=== PATIENT | female | born 1975 | race American Indian/Alaskan Native ===

== ENCOUNTER 2019-05-07 18:17 | Emergency (ER) | payer SELFPAY ==
--- NOTE | 2019-05-07 20:14 | Event Note ---
ED Screening Note Date of service: 05/07/19 Time: 20:13 ED Screening Note: 43 y o female presents to ED cc of knee pain and neck pain s[place] This initial assessment/diagnostic orders/clinical plan/treatment(s) is/are subject to change based on patients health status, clinical progression and re- assessment by fellow clinical providers in the ED. Further treatment and workup at subsequent clinical providers discretion. Patient/guardian urged not to elope from the ED as their condition may be serious if not clinically assessed and managed. Initial orders include: xr cervical and right knee
--- NOTE | 2019-05-07 21:09 | XRay Report ---
RIGHT KNEE 3 VIEWS INDICATION / CLINICAL INFORMATION: knee pain. COMPARISON: None available. FINDINGS: Mild to moderate degenerative change. No fracture or other acute skeletal abnormality. Lateral view s hows no appreciable joint fluid. Signer Name: Prieto Freeman MD Signed: 05/07/2019 9:04 PM Workstation Name: [id number]
--- NOTE | 2019-05-07 21:11 | XRay Report ---
Cervical spine 5 views INDICATION / CLINICAL INFORMATION: pain from fall. COMPARISON: None. FINDINGS: Interbody fusion with anterior stabilization at C4-C6. No fracture, subluxation or other acute abnorm ality. Signer Name: Prieto Freeman MD Signed: 05/07/2019 9:06 PM Workstation Name: [id number]
[2019-05-07 23:29] VITALS: BP 180/106
[2019-05-08] MEDS ORDERED: ACETAMINOPHEN 500 MG TAB PO ONE (00:21)
[2019-05-08] MEDS ORDERED: IBUPROFEN 600 MG TAB PO ONE (00:21)
--- NOTE | 2019-05-08 00:49 | Emergency Department Report ---
ED Fall HPI - General Chief Complaint: Fall Stated Complaint: KNEE/BACK INJURY/MIGRAINE Source: patient Mode of arrival: Ambulatory - History of Present Illness Initial Comments: Patient is a 43-year-old -[place] female with no past medical history except hypertension, [id number]-lkjaukjae diabetes, chronic osteoarthritis and lupus who presents to the ED record and the acute onset persistent neck pain and bilateral knee pain after she tripped and fell down on the concrete ground when disembarking from motor vehicle 8 hours ago. Patient says the pain is worsened in the last fall. Patient denies dizziness, loss of consciousness, head injury, syncope or chest pain, abdominal pain numbness and tingling or weakness of upper and lower extremities bilaterally, urinary or bowel incontinence and subtle paresthesia. MD Complaint: fall, other (Bilateral knee and neck pain) -: Sudden, hour(s) (8) Fall From: other (Tripped and fell down when disembarking from a car) When Fall Occurred: other (8 hours ago) Fall Witnessed: yes, by bystander Place Fall Occurred: street Loss of Consciousness: none Prolonged Down Time?: no Symptoms Prior to Fall: none Location: neck, other (Bilateral knees) Location - Extremities: Left: Knee (Bilateral knee pain), Right: Knee Severity: severe Severity scale (0 -10): 7 Quality: sharp, aching Context: tripped/slipped Associated Symptoms: denies, neck pain. denies: headache, numbness, weakness, chest paint, shortness of breath, abdominal pain, hematuria, unable to walk, lightheaded, vertigo, confusion - Related Data Previous Rx's Medication Instructions Recorded Last Taken Type Acyclovir 800 mg PO 5XD #50 tablet 04/30/18 Unknown Rx Gabapentin 100 mg PO Q8HR #30 capsule 04/30/18 Unknown Rx predniSONE [Deltasone] 20 mg PO BID #8 tab 04/30/18 Unknown Rx Amitriptyline [Elavil] 25 mg PO QHS #14 tab 10/19/18 Unknown Rx HYDROcodone/ACETAMINOPHEN [[place] 1 each PO Q6HR PRN #12 tablet 10/19/18 Unknown Rx 5-325 Tablet] Hydroxyzine HCl [hydrOXYzine] 50 mg PO Q12HR PRN #10 tablet 10/19/18 Unknown Rx Valacyclovir HCl [Valtrex] 1,000 mg PO TID 7 Days #21 tablet 10/19/18 Unknown Rx Ibuprofen [Motrin] 600 mg PO Q8H PRN #20 tablet 05/08/19 Unknown Rx tiZANidine [Zanaflex 4mg TAB] 4 mg PO Q8H PRN #15 tablet 05/08/19 Unknown Rx traMADol [Ultram] 50 mg PO Q6HR PRN #12 tablet 05/08/19 Unknown Rx Allergies Allergy/AdvReac Type Severity Reaction Status Date / Time No Known Allergies Allergy Verified 05/07/19 18:22 ED Review of Systems ROS: Stated complaint: KNEE/BACK INJURY/MIGRAINE Other details as noted in HPI Constitutional: denies: chills, fever Eyes: denies: eye pain, eye discharge, vision change ENT: denies: ear pain, throat pain Respiratory: denies: cough, shortness of breath, wheezing Cardiovascular: denies: chest pain, palpitations Endocrine: no symptoms reported Gastrointestinal: denies: abdominal pain, nausea, diarrhea Genitourinary: denies: urgency, dysuria, discharge Musculoskeletal: arthralgia (Bilateral knees and neck pain). denies: back pain, joint swelling Skin: denies: rash, lesions Neurological: denies: headache, weakness, paresthesias Psychiatric: denies: anxiety, depression Hematological/Lymphatic: denies: easy bleeding, easy bruising ED Past Medical Hx - Past Medical History Previous Medical History?: Yes Hx Diabetes: Yes Hx Arthritis: Yes Additional medical history: Lupus, shingles - Surgical History Past Surgical History?: Yes Additional Surgical History: hysterectomy,spinal fusion,hand - Social History Smoking Status: Never Smoker Substance Use Type: None, Other - Medications Home Medications: Home Medications Medication Instructions Recorded Confirmed Last Taken Type Acyclovir 800 mg PO 5XD #50 tablet 04/30/18 Unknown Rx Gabapentin 100 mg PO Q8HR #30 capsule 04/30/18 Unknown Rx predniSONE [Deltasone] 20 mg PO BID #8 tab 04/30/18 Unknown Rx Amitriptyline [Elavil] 25 mg PO QHS #14 tab 10/19/18 Unknown Rx HYDROcodone/ACETAMINOPHEN [[place] 1 each PO Q6HR PRN #12 tablet 10/19/18 Unknown Rx 5-325 Tablet] Hydroxyzine HCl [hydrOXYzine] 50 mg PO Q12HR PRN #10 tablet 10/19/18 Unknown Rx Valacyclovir HCl [Valtrex] 1,000 mg PO TID 7 Days #21 tablet 10/19/18 Unknown Rx Ibuprofen [Motrin] 600 mg PO Q8H PRN #20 tablet 05/08/19 Unknown Rx tiZANidine [Zanaflex 4mg TAB] 4 mg PO Q8H PRN #15 tablet 05/08/19 Unknown Rx traMADol [Ultram] 50 mg PO Q6HR PRN #12 tablet 05/08/19 Unknown Rx ED Physical Exam - General Limitations: No Limitations General appearance: alert, in no apparent distress - Head Head exam: Present: atraumatic, normocephalic, normal inspection - Eye Eye exam: Present: normal appearance, PERRL, EOMI Pupils: Present: normal accommodation - ENT ENT exam: Present: normal exam, normal orophraynx, mucous membranes moist, TM's normal bilaterally, normal external ear exam - Neck Neck exam: Present: normal inspection, tenderness (palpable cervical paraspinal musculoskeletal tenderness), full ROM. Absent: lymphadenopathy, thyromegaly - Respiratory Respiratory exam: Present: normal lung sounds bilaterally. Absent: respiratory distress, wheezes, rhonchi, stridor, chest wall tenderness, accessory muscle use, decreased breath sounds, prolonged expiratory - Cardiovascular Cardiovascular Exam: Present: regular rate, normal rhythm, normal heart sounds. Absent: systolic murmur, diastolic murmur, rubs, gallop - GI/Abdominal GI/Abdominal exam: Present: soft, normal bowel sounds. Absent: tenderness, rebound, hyperactive bowel sounds, hypoactive bowel sounds, organomegaly - Extremities Exam Extremities exam: Present: normal inspection, tenderness (Bilateral knees), normal capillary refill. Absent: pedal edema, joint swelling, calf tenderness - Back Exam Back exam: Present: normal inspection, full ROM. Absent: tenderness, CVA tenderness (R), CVA tenderness (L), muscle spasm, paraspinal tenderness, vertebral tenderness - Neurological Exam Neurological exam: Present: alert, oriented X3, CN II-XII intact, normal gait, reflexes normal - Psychiatric Psychiatric exam: Present: normal affect, normal mood, anxious - Skin Skin exam: Present: warm, dry, intact, normal color. Absent: rash ED Course Vital Signs 05/07/19 05/07/19 20:05 23:28 Temperature 98.8 F 98.1 F Pulse Rate 75 79 Respiratory 18 18 Rate Blood Pressure 199/112 180/106 O2 Sat by Pulse 100 99 Oximetry - Reevaluation(s) Reevaluation #1: 05/08/19 00:47 This is a 43-year-old female who presented to the ED with complaint of neck pain and bilateral knee pain after she tripped and fell down landing on her knees on a concrete ground when disembarking from a car 8 hours ago. In the ED, patient is alert and oriented 3 and is in no acute distress but very anxious. Patient was treated for pain and right knee x-ray shows no acute fractures or subluxations. C-spine x-ray shows no acute fractures or subluxations, or loosening of previous surgical interventions. Patient was discharged home on pain medications and advised to follow-up with her primary care physician in 7- 10 days for reevaluation. Patient was advised to return to the ED immediately if symptoms get worse. ED Medical Decision Making - Radiology Data Radiology results: report reviewed, image reviewed Findings [address] [address] XRay Report Signed Patient: ULISES PONCE MR# : [id number] : 1975 Acct:[id number] Age/Sex: 43 / F ADM Date: 05/07/19 Loc: ED Attending Dr: Ordering Physician: MASON MARROQUIN Date of Service: 05/07/19 Procedure(s): XR spine cervical 2-3V Accession Number(s): [id number] cc: MASON MARROQUIN Fluoro Time In Minutes: Cervical spine 5 views INDICATION / CLINICAL INFORMATION: pain from fall. COMPARISON: None. FINDINGS: Interbody fusion with anterior stabilization at C4-C6. No fracture, subluxation or other acute abnormality. Signer Name: Prieto Freeman MD Signed: 05/07/2019 9:06 PM Workstation Name: [id number] Transcribed By: TM Dictated By: Prieto Freeman MD Electronically Authenticated By: Prieto Freeman MD Signed Date/Time: 05/07/192105 DD/ 04 TD/TT: Findings [facility] [address] [place] [address] XRay Report Signed Patient: ULISES OPNCE MR# : [id number] : 1975 Acct:[id number] Age/Sex: 43 / F ADM Date: 05/07/19 Loc: ED Attending Dr: Ordering Physician: MASON MARROQUIN Date of Service: 05/07/19 Procedure(s): XR knee 3V RT Accession Number(s): [id number] cc: MASON MARROQUIN Fluoro Time In Minutes: RIGHT KNEE 3 VIEWS INDICATION / CLINICAL INFORMATION: knee pain. COMPARISON: None available. FINDINGS: Mild to moderate degenerative change. No fracture or other acute skeletal abnormality. Lateral view shows no appreciable joint fluid. Signer Name: Prieto Freeman MD Signed: 05/07/2019 9:04 PM Workstation Name: [id number] Transcribed By: TM Dictated By: Prieto Freeman MD Electronically Authenticated By: Prieto Freeman MD Signed Date/Time: 05/07/192103 - Medical Decision Making This is a 43-year-old female who presented to the ED with complaint of neck pain and bilateral knee pain after she tripped and fell down landing on her knees on a concrete ground when disembarking from a car 8 hours ago. In the ED, patient is alert and oriented 3 and is in no acute distress but very anxious. Patient was treated for pain and right knee x-ray shows no acute fractures or subluxations. C-spine x-ray shows no acute fractures or subluxations, or loosening of previous surgical interventions. Patient was discharged home on pain medications and advised to follow-up with her primary care physician in 7- 10 days for reevaluation. Patient was advised to return to the ED immediately if symptoms get worse. - Differential Diagnosis Knee fracture; cervical fracture; cervical sprain, muscle strain Critical care attestation.: If time is entered above; I have spent that time in minutes in the direct care of this critically ill patient, excluding procedure time. ED Disposition Clinical Impression: Cervical paraspinal muscle spasm, Sprain of both knees Disposition: TO HOME OR SELFCARE Is pt being admited?: No Does the pt Need Aspirin: No Condition: Stable Instructions: Knee Sprain (ED), Muscle Strain (ED), Cervical Sprain (ED) Additional Instructions: Take medications, drink plenty of fluids and follow-up with your primary care physician in 7-10 days for reevaluation. Return to the ED immediately if symptoms get worse. Prescriptions: Ibuprofen [Motrin] 600 mg PO Q8H PRN #20 tablet PRN Reason: Pain traMADol [Ultram] 50 mg PO Q6HR PRN #12 tablet PRN Reason: Pain tiZANidine [Zanaflex 4mg TAB] 4 mg PO Q8H PRN #15 tablet PRN Reason: Muscle Spasm Referrals: PRIMARY CARE, [Primary Care Provider] - 3-5 Days Forms: Work/School Release Form(ED) Time of Disposition: 00:51 Print Language: SETSWANA
== END 2019-05-08 01:07 | disposition home or self-care (01) ==
LOC: ED 18:17
DX: S83.91XA Sprain of unspecified site of right knee, initial encounter (principal); E11.9 Type 2 diabetes mellitus without complications; M19.90 Unspecified osteoarthritis, unspecified site; W01.0XXA Fall on same level from slipping, tripping and stumbling without subsequent striking against object, initial encounter; Y93.89 Activity, other specified; Y92.89 Other specified places as the place of occurrence of the external cause; Y99.8 Other external cause status
CPT/HCPCS: 72040

== ENCOUNTER 2019-07-04 12:52 | Emergency (ER) | payer SELFPAY ==
[2019-07-04 12:58] VITALS: BP 153/95
--- NOTE | 2019-07-04 14:08 | Event Note ---
ED Screening Note Date of service: 07/04/19 Time: 14:02 ED Screening Note: 43 y o female with pmh of DM and HTN uncompliant with meds cc of green/blurry vision This initial assessment/diagnostic orders/clinical plan/treatment(s) is/are subject to change based on patients health status, clinical progression and re- assessment by fellow clinical providers in the ED. Further treatment and workup at subsequent clinical providers discretion. Patient/guardian urged not to elope from the ED as their condition may be serious if not clinically assessed and managed. Initial orders include: labs, main eval
[2019-07-04 15:40] LABS: Hematocrit 39.9 % (30.3-42.9); Hemoglobin 13.7 gm/dl (10.1-14.3); Mean Corpuscular HGB Conc 34 % (30-34); Mean Corpuscular Volume 86 fl (79-97); Platelet Count 161 K/mm3 (140-440); Red Blood Count 4.63 M/mm3 (3.65-5.03); Red Cell Distribution Width 12.5 % (13.2-15.2)
[2019-07-04 16:03] LABS: Alanine Aminotransferase 16 units/L (7-56); Albumin 3.6 g/dL (3.9-5); BUN/Creatinine Ratio 20; Blood Urea Nitrogen 14 mg/dL (7-17); Hemolysis Index 87
== END 2019-07-04 17:47 | disposition left against medical advice (07) ==
LOC: ED 12:52
DX: R51 Headache (principal); Z53.21 Procedure and treatment not carried out due to patient leaving prior to being seen by health care provider
CPT/HCPCS: 36415; 80053; 82962; 85027

== ENCOUNTER 2020-04-08 09:15 | Emergency (ER) | payer SELFPAY ==
--- NOTE | 2020-04-08 10:30 | Emergency Department Report ---
ED General Adult HPI - General Chief complaint: Hyperglycemia Stated complaint: DIABETIC/HEADACHE Time Seen by Provider: 04/08/20 09:56 Source: patient Mode of arrival: Ambulatory Limitations: No Limitations - History of Present Illness Initial comments: 44-year-old -Mal[place] female patient presents with complaints of headache x last night. Patient states the headache came on gradually and denies thunderclap onset or worst headache of her life. She rates her headache as a 9/10 in severity and states it is in the frontal and posterior portion of her head. She denies any dizziness, loss of consciousness, head trauma, numbness/weakness/tingling in her limbs, difficulty with speech/ambulation, confusion, or memory loss. She reports history of hypertension and diabetes and states she is noncompliant with her medications for the past year. She also reports history of migraines in the past and states this headache feels similar. She admits to photophobia and nausea without vomiting or abdominal pain. Patient also denies any chest pain, shortness of breath, or leg pain/swelling. - Related Data Previous Rx's Medication Instructions Recorded Last Taken Type Acyclovir 800 mg PO 5XD #50 tablet 04/30/18 Unknown Rx Gabapentin 100 mg PO Q8HR #30 capsule 04/30/18 Unknown Rx predniSONE [Deltasone] 20 mg PO BID #8 tab 04/30/18 Unknown Rx Amitriptyline [Elavil] 25 mg PO QHS #14 tab 10/19/18 Unknown Rx HYDROcodone/ACETAMINOPHEN [[place] 1 each PO Q6HR PRN #12 tablet 10/19/18 Unknown Rx 5-325 Tablet] Hydroxyzine HCl [hydrOXYzine] 50 mg PO Q12HR PRN #10 tablet 10/19/18 Unknown Rx Valacyclovir HCl [Valtrex] 1,000 mg PO TID 7 Days #21 tablet 10/19/18 Unknown Rx Ibuprofen [Motrin] 600 mg PO Q8H PRN #20 tablet 05/08/19 Unknown Rx tiZANidine [Zanaflex 4mg TAB] 4 mg PO Q8H PRN #15 tablet 05/08/19 Unknown Rx traMADoL [Ultram] 50 mg PO Q6HR PRN #12 tablet 05/08/19 Unknown Rx Butalb/Acetamin/Caff 50-325-40 1 tab PO Q8HR PRN #10 tablet 04/08/20 Unknown Rx [Fioricet 50-325-40] metFORMIN [Glucophage] 500 mg PO BID 60 Days #60 tablet 04/08/20 Unknown Rx Allergies Allergy/AdvReac Type Severity Reaction Status Date / Time No Known Allergies Allergy Verified 05/07/19 18:22 ED Review of Systems ROS: Stated complaint: DIABETIC/HEADACHE Other details as noted in HPI Constitutional: denies: chills, diaphoresis, fever, malaise, weakness ENT: denies: ear pain, throat pain Respiratory: denies: cough, shortness of breath Cardiovascular: denies: chest pain Endocrine: denies: excessive sweating Gastrointestinal: nausea. denies: abdominal pain, vomiting, diarrhea Genitourinary: denies: urgency, dysuria Musculoskeletal: denies: back pain Neurological: headache. denies: numbness, paresthesias, confusion, abnormal gait Hematological/Lymphatic: denies: swollen glands ED Past Medical Hx - Past Medical History Previous Medical History?: Yes Hx Diabetes: Yes Hx Arthritis: Yes Additional medical history: Lupus, shingles - Surgical History Additional Surgical History: hysterectomy,spinal fusion,hand - Social History Smoking Status: Never Smoker Substance Use Type: None - Medications Home Medications: Home Medications Medication Instructions Recorded Confirmed Last Taken Type Acyclovir 800 mg PO 5XD #50 tablet 04/30/18 Unknown Rx Gabapentin 100 mg PO Q8HR #30 capsule 04/30/18 Unknown Rx predniSONE [Deltasone] 20 mg PO BID #8 tab 04/30/18 Unknown Rx Amitriptyline [Elavil] 25 mg PO QHS #14 tab 10/19/18 Unknown Rx HYDROcodone/ACETAMINOPHEN [[place] 1 each PO Q6HR PRN #12 tablet 10/19/18 Unknown Rx 5-325 Tablet] Hydroxyzine HCl [hydrOXYzine] 50 mg PO Q12HR PRN #10 tablet 10/19/18 Unknown Rx Valacyclovir HCl [Valtrex] 1,000 mg PO TID 7 Days #21 tablet 10/19/18 Unknown Rx Ibuprofen [Motrin] 600 mg PO Q8H PRN #20 tablet 05/08/19 Unknown Rx tiZANidine [Zanaflex 4mg TAB] 4 mg PO Q8H PRN #15 tablet 05/08/19 Unknown Rx traMADoL [Ultram] 50 mg PO Q6HR PRN #12 tablet 05/08/19 Unknown Rx Butalb/Acetamin/Caff 50-325-40 1 tab PO Q8HR PRN #10 tablet 04/08/20 Unknown Rx [Fioricet 50-325-40] metFORMIN [Glucophage] 500 mg PO BID 60 Days #60 tablet 04/08/20 Unknown Rx ED Physical Exam - General Limitations: No Limitations General appearance: alert, in no apparent distress - Head Head exam: Present: atraumatic, normocephalic - Eye Eye exam: Present: normal appearance, PERRL, EOMI. Absent: scleral icterus - ENT ENT exam: Present: mucous membranes moist - Neck Neck exam: Present: normal inspection, tenderness (Bilateral trapezius muscle t enderness to palpation noted; no vertebral tenderness noted), full ROM. Absent: meningismus - Respiratory Respiratory exam: Present: normal lung sounds bilaterally. Absent: respiratory distress - Cardiovascular Cardiovascular Exam: Present: regular rate, normal rhythm. Absent: systolic murmur, diastolic murmur, rubs, gallop - GI/Abdominal GI/Abdominal exam: Present: soft. Absent: tenderness - Extremities Exam Extremities exam: Present: normal inspection, full ROM - Back Exam Back exam: Present: normal inspection - Neurological Exam Neurological exam: Present: alert, oriented X3, CN II-XII intact, normal gait. Absent: motor sensory deficit - Expanded Neurological Exam Expanded Cerebellar function: Finger to Nose: Normal, Heel to Fortune: Normal, Romberg: Normal Sensory exam: Upper Extremity Light Touch: Normal, Lower Extremity Light Touch: Normal Motor strength exam: RUE: 5, LUE: 5, RLE: 5, LLE: 5 - Psychiatric Psychiatric exam: Present: normal affect, normal mood - Skin Skin exam: Present: warm, dry, intact, normal color. Absent: rash, cyanosis, diaphoretic, ecchymosis ED Course Vital Signs 04/08/20 04/08/20 09:21 16:52 Temperature 97.8 F Pulse Rate 65 80 Respiratory 18 16 Rate Blood Pressure 181/103 Blood Pressure 112/80 190/108 [Right] O2 Sat by Pulse 100 100 Oximetry ED Medical Decision Making - Lab Data Result diagrams: 04/08/20 11:46 04/08/20 11:46 Lab Results 10/06/20 10/06/20 10/06/20 Range/Units 09:43 11:46 11:46 WBC 6.0 (4.5-11.0) K/mm3 RBC 4.69 (3.65-5.03) M/mm3 Hgb 14.2 (10.1-14.3) gm/dl Hct 41.0 (30.3-42.9) % MCV 87 (79-97) fl MCH 30 (28-32) pg MCHC 35 H (30-34) % RDW 12.9 L (13.2-15.2) % Plt Count 134 L (140-440) K/mm3 Lymph % (Auto) 40.0 H (13.4-35.0) % [place] % (Auto) 7.1 (0.0-7.3) % Eos % (Auto) 0.4 (0.0-4.3) % Baso % (Auto) 1.8 (0.0-1.8) % Lymph # (Auto) 2.4 (1.2-5.4) K/mm3 [place] # (Auto) 0.4 (0.0-0.8) K/mm3 Eos # (Auto) 0.0 (0.0-0.4) K/mm3 Baso # (Auto) 0.1 (0.0-0.1) K/mm3 Seg Neutrophils % 50.7 (40.0-70.0) % Seg Neutrophils # 3.0 (1.8-7.7) K/mm3 Sodium 138 (137-145) mmol/L Potassium 4.2 (3.6-5.0) mmol/L Chloride 96.7 L (98-107) mmol/L Carbon Dioxide 24 (22-30) mmol/L Anion Gap 22 mmol/L BUN 10 (7-17) mg/dL Creatinine 0.7 (0.6-1.2) mg/dL Estimated GFR > 60 ml/min BUN/Creatinine Ratio 14 % Glucose 396 H (65-100) mg/dL POC Glucose 332 H (70-105) Calcium 9.0 (8.4-10.2) mg/dL Total Bilirubin 0.50 (0.1-1.2) mg/dL AST 14 (5-40) units/L ALT 14 (7-56) units/L Alkaline Phosphatase 119 (35-129) units/L Total Protein 6.9 (6.3-8.2) g/dL Albumin 4.2 (3.9-5) g/dL Albumin/Globulin Ratio 1.6 % Urine Color (Yellow) Urine Turbidity (Clear) Urine pH (5.0-7.0) Ur Specific [place] (1.003-1.030) Urine Protein (Negative) mg/dL Urine Glucose (UA) (Negative) mg/dL Urine Ketones (Negative) mg/dL Urine Blood (Negative) Urine Nitrite (Negative) Urine Bilirubin (Negative) Urine Urobilinogen (<2.0) mg/dL Ur Leukocyte Esterase (Negative) Urine WBC (Auto) (0.0-6.0) /HPF Urine RBC (Auto) (0.0-6.0) /HPF U Epithel Cells (Auto) (0-13.0) /HPF 04/08/20 Range/Units 13:39 WBC (4.5-11.0) K/mm3 RBC (3.65-5.03) M/mm3 Hgb (10.1-14.3) gm/dl Hct (30.3-42.9) % MCV (79-97) fl MCH (28-32) pg MCHC (30-34) % RDW (13.2-15.2) % Plt Count (140-440) K/mm3 Lymph % (Auto) (13.4-35.0) % [place] % (Auto) (0.0-7.3) % Eos % (Auto) (0.0-4.3) % Baso % (Auto) (0.0-1.8) % Lymph # (Auto) (1.2-5.4) K/mm3 [place] # (Auto) (0.0-0.8) K/mm3 Eos # (Auto) (0.0-0.4) K/mm3 Baso # (Auto) (0.0-0.1) K/mm3 Seg Neutrophils % (40.0-70.0) % Seg Neutrophils # (1.8-7.7) K/mm3 Sodium (137-145) mmol/L Potassium (3.6-5.0) mmol/L Chloride (98-107) mmol/L Carbon Dioxide (22-30) mmol/L Anion Gap mmol/L BUN (7-17) mg/dL Creatinine (0.6-1.2) mg/dL Estimated GFR ml/min BUN/Creatinine Ratio % Glucose (65-100) mg/dL POC Glucose (70-105) Calcium (8.4-10.2) mg/dL Total Bilirubin (0.1-1.2) mg/dL AST (5-40) units/L ALT (7-56) units/L Alkaline Phosphatase (35-129) units/L Total Protein (6.3-8.2) g/dL Albumin (3.9-5) g/dL Albumin/Globulin Ratio % Urine Color Straw (Yellow) Urine Turbidity Clear (Clear) Urine pH 6.0 (5.0-7.0) Ur Specific [place] 1.028 (1.003-1.030) Urine Protein <15 mg/dl (Negative) mg/dL Urine Glucose (UA) >=500 (Negative) mg/dL Urine Ketones Neg (Negative) mg/dL Urine Blood Neg (Negative) Urine Nitrite Neg (Negative) Urine Bilirubin Neg (Negative) Urine Urobilinogen < 2.0 (<2.0) mg/dL Ur Leukocyte Esterase Neg (Negative) Urine WBC (Auto) < 1.0 (0.0-6.0) /HPF Urine RBC (Auto) 1.0 (0.0-6.0) /HPF U Epithel Cells (Auto) < 1.0 (0-13.0) /HPF - Radiology Data Radiology results: report reviewed NONENHANCED CT SCAN OF THE HEAD: INDICATION / CLINICAL INFORMATION: 44 years Female; acute headache. TECHNIQUE: Routine CT head without contrast. All CT scans at this location are performed using CT dose reduction for ALARA by means of automated exposure control. COMPARISON: None. FINDINGS: BRAIN / INTRACRANIAL CONTENTS: No acute hemorrhage, mass effect, midline shift, hydrocephalus, or acute, large territorial infarct. No chronic infarct or focal atrophy. Normal brain volume and ventricular/sulcal size for age. No significant white matter abnormality. CRANIOCERVICAL JUNCTION: No significant abnormality. ORBITS: No significant abnormality of visualized orbits. SINUSES / MASTOIDS: No significant abnormality of the visualized paranasal sinuses or mastoid air cells. ADDITIONAL FINDINGS: None. IMPRESSION: Normal nonenhanced CT scan of the brain. - Medical Decision Making 44-year-old -[place] female patient presents with complaints of headache x last night. Patient states the headache came on gradually and denies thunde rclap onset or worst headache of her life. She rates her headache as a 9/10 in severity and states it is in the frontal and posterior portion of her head. She denies any dizziness, loss of consciousness, head trauma, numbness/weakness/tingling in her limbs, difficulty with speech/ambulation, confusion, or memory loss. She reports history of hypertension and diabetes and states she is noncompliant with her medications for the past year. She also reports history of migraines in the past and states this headache feels similar. She admits to photophobia and nausea without vomiting or abdominal pain. Patient also denies any chest pain, shortness of breath, or leg pain/swelling. Neuro exam is normal. Patient given Toradol, Reglan, Benadryl and Fioricet without improvement in her headache. Given blurry vision and abnormal headache, CT head was performed and is negative for any acute abnormalities. CBC is without acute abnormalities. Hyperglycemia noted at 393-patient given 2 L of sa line and recheck of glucose is now 303. Patient's metformin refilled. Her headache is now resolved after sumatriptan. Recommend follow-up with PCP in 3 days. Repeat blood pressure noted to be 190/108 -patient states history of hypertension, however she is unsure of what blood pressure medication she was taking prior. She is no longer symptomatic. Patient to follow-up with PCP in 2 days for further evaluation and treatment of her blood pressure. She is well- appearing she is stable for discharge home. Strict return precautions were discussed in detail with patient who verbalized understanding Critical care attestation.: If time is entered above; I have spent that time in minutes in the direct care of this critically ill patient, excluding procedure time. ED Disposition Clinical Impression: Acute confusional migraine, Uncontrolled hypertension Disposition: DC-01 TO HOME OR SELFCARE Is pt being admited?: No Condition: Stable Instructions: Migraine Headache (ED), Hypertension (ED) Prescriptions: Butalb/Acetamin/Caff 50-325-40 [Fioricet 50-325-40] 1 tab PO Q8HR PRN #10 tablet PRN Reason: Headache metFORMIN [Glucophage] 500 mg PO BID 60 Days #60 tablet Referrals: [facility] [Provider Group] - 04/10/20 FLORIAN MARISCAL MD [Staff Physician] - 04/10/20
[2020-04-08] MEDS ORDERED: SODIUM CHLORIDE 0.9% 1000 ML 1,000 ML IV ONE ×2 (11:17→13:18)
[2020-04-08] MEDS ORDERED: diphenhydrAMINE 50 MG/ML VIAL IV ONE (11:17)
[2020-04-08] MEDS ORDERED: METOCLOPRAMIDE 10 MG/2 ML INJ IV ONE (11:17)
[2020-04-08] MEDS ORDERED: KETOROLAC 30 MG/1 ML INJ IV ONE (11:17)
[2020-04-08] MEDS ORDERED: BUTALB/ACETAMINOPHEN/CAFFEINE TAB PO ONE (11:19)
[2020-04-08 12:44] LABS: Basophils # (Auto) 0.1 K/mm3 (0.0-0.1); Basophils % (Auto) 1.8 % (0.0-1.8); Eosinophils % (Auto) 0.4 % (0.0-4.3); Hemoglobin 14.2 gm/dl (10.1-14.3); Lymphocytes # (Auto) 2.4 K/mm3 (1.2-5.4); Mean Corpuscular HGB Conc 35 % (30-34); Mean Corpuscular Volume 87 fl (79-97); Monocytes # (Auto) 0.4 K/mm3 (0.0-0.8); Monocytes % (Auto) 7.1 % (0.0-7.3); Platelet Count 134 K/mm3 (140-440); Red Blood Count 4.69 M/mm3 (3.65-5.03); Red Cell Distribution Width 12.9 % (13.2-15.2)
[2020-04-08 13:06] LABS: Alanine Aminotransferase 14 units/L (7-56); Albumin 4.2 g/dL (3.9-5); Blood Urea Nitrogen 10 mg/dL (7-17); Hemolysis Index 4
[2020-04-08 13:07] LABS: BUN/Creatinine Ratio 14
[2020-04-08 13:53] LABS: Bilirubin,Urine NEG (Negative); Blood,Urine NEG (Negative); Color,Urine Straw (Yellow); Protein,Urine <15 mg/dL mg/dL (Negative); Urobilinogen,Urine < 2.0 mg/dL (<2.0); WBC,Urine < 1.0 /HPF (0.0-6.0)
[2020-04-08] MEDS ORDERED: SUMAtriptan SUCCINATE 6 MG/0.5 ML INJ SUB-Q ONE (14:56)
--- NOTE | 2020-04-08 16:16 | Cat Scan Report ---
NONENHANCED CT SCAN OF THE HEAD: INDICATION / CLINICAL INFORMATION: 44 years Female; acute headache. TECHNIQUE: Routine CT head without contrast. All CT scans at this location are performed using CT dos e reduction for ALARA by means of automated exposure control. COMPARISON: None. FINDINGS: BRAIN / INTRACRANIAL CONTENTS: No acute hemorrhage, mass effect, midline shift, hydrocephalus, or acu te, large territorial infarct. No chronic infarct or focal atrophy. Normal brain volume and ventricul ar/sulcal size for age. No significant white matter abnormality. CRANIOCERVICAL JUNCTION: No significant abnormality. ORBITS: No significant abnormality of visualized orbits. SINUSES / MASTOIDS: No significant abnormality of the visualized paranasal sinuses or mastoid air rhianna ls. ADDITIONAL FINDINGS: None. IMPRESSION: Normal nonenhanced CT scan of the brain. Signer Name: Radha Shepherd MD Signed: 04/08/2020 4:11 PM Workstation Name: [id number]
[2020-04-08 16:53] VITALS: BP 190/108
== END 2020-04-08 17:02 | disposition home or self-care (01) ==
LOC: ED 09:15
DX: G43.809 Other migraine, not intractable, without status migrainosus (principal); E11.9 Type 2 diabetes mellitus without complications; M13.88 Other specified arthritis, other site; Z90.710 Acquired absence of both cervix and uterus; Z79.899 Other long term (current) drug therapy
CPT/HCPCS: 36415; 70450; 80053; 81001; 82962; 85025; 96361; 96372; 96374; 96375; 99284; J1200; J1885; J2765; J7030; J3030

== ENCOUNTER 2020-08-04 09:23 | Emergency (ER) | payer SELFPAY ==
--- NOTE | 2020-08-04 10:37 | Emergency Department Report ---
ED Female HPI - General Chief complaint: Vaginal Bleeding Stated complaint: VAGINAL BLEEDING Time Seen by Provider: 08/04/20 10:21 Source: patient Mode of arrival: Ambulatory Limitations: No Limitations - History of Present Illness Initial comments: Patient is a 44-year-old female presents emergency room complaints of vaginal irritation that began a week ago. Patient states that she has had a new sexual partner and had unprotected intercourse and is embarrassed because she is concerned that she has an STD. She states that she has never had an STD in the past. She states that she has vaginal irritation, swelling, vaginal bleeding with wiping, yellow vaginal discharge, dysuria, vaginal pain. She denies any abdominal pain, back pain, nausea, vomiting, diarrhea, fever, chills. She has a past medical history of hypertension and diabetes, she states that she has not been compliant with her medication regimen, she states that she is making an appointment with her primary care physician. No allergies to medications. She states that she had a total hysterectomy. - Related Data Previous Rx's Medication Instructions Recorded Last Taken Type Acyclovir 800 mg PO 5XD #50 tablet 04/30/18 Unknown Rx Gabapentin 100 mg PO Q8HR #30 capsule 04/30/18 Unknown Rx predniSONE [Deltasone] 20 mg PO BID #8 tab 04/30/18 Unknown Rx Amitriptyline [Elavil] 25 mg PO QHS #14 tab 10/19/18 Unknown Rx HYDROcodone/ACETAMINOPHEN [[place] 1 each PO Q6HR PRN #12 tablet 10/19/18 Unknown Rx 5-325 Tablet] Hydroxyzine HCl [hydrOXYzine] 50 mg PO Q12HR PRN #10 tablet 10/19/18 Unknown Rx Valacyclovir HCl [Valtrex] 1,000 mg PO TID 7 Days #21 tablet 10/19/18 Unknown Rx Ibuprofen [Motrin] 600 mg PO Q8H PRN #20 tablet 05/08/19 Unknown Rx tiZANidine [Zanaflex 4mg TAB] 4 mg PO Q8H PRN #15 tablet 05/08/19 Unknown Rx traMADoL [Ultram] 50 mg PO Q6HR PRN #12 tablet 05/08/19 Unknown Rx Butalb/Acetamin/Caff 50-325-40 1 tab PO Q8HR PRN #10 tablet 04/08/20 Unknown Rx [Fioricet 50-325-40] metFORMIN [Glucophage] 500 mg PO BID 60 Days #60 tablet 04/08/20 Unknown Rx Acyclovir 400 mg PO TID 7 Days #21 tablet 08/04/20 Unknown Rx Doxycycline Hyclate [Doxycycline 100 mg PO BID 7 Days #14 tab 08/04/20 Unknown Rx Hyclate TAB] Fluconazole (Nf) [Diflucan TAB] 150 mg PO ONCE 1 Days #1 tablet 08/04/20 Unknown Rx cephALEXin [Keflex] 500 mg PO BID 7 Days #14 cap 08/04/20 Unknown Rx Allergies Allergy/AdvReac Type Severity Reaction Status Date / Time No Known Allergies Allergy Verified 05/07/19 18:22 ED Review of Systems ROS: Stated complaint: VAGINAL BLEEDING Other details as noted in HPI Comment: All other systems reviewed and negative ED Past Medical Hx - Past Medical History Previous Medical History?: Yes Hx Hypertension: Yes Hx Diabetes: Yes Hx Arthritis: Yes Additional medical history: Lupus, shingles - Surgical History Past Surgical History?: Yes Additional Surgical History: hysterectomy,spinal fusion,hand - Social History Smoking Status: Never Smoker Substance Use Type: None - Medications Home Medications: Home Medications Medication Instructions Recorded Confirmed Last Taken Type Acyclovir 800 mg PO 5XD #50 tablet 04/30/18 Unknown Rx Gabapentin 100 mg PO Q8HR #30 capsule 04/30/18 Unknown Rx predniSONE [Deltasone] 20 mg PO BID #8 tab 04/30/18 Unknown Rx Amitriptyline [Elavil] 25 mg PO QHS #14 tab 10/19/18 Unknown Rx HYDROcodone/ACETAMINOPHEN [[place] 1 each PO Q6HR PRN #12 tablet 10/19/18 Unknown Rx 5-325 Tablet] Hydroxyzine HCl [hydrOXYzine] 50 mg PO Q12HR PRN #10 tablet 10/19/18 Unknown Rx Valacyclovir HCl [Valtrex] 1,000 mg PO TID 7 Days #21 tablet 10/19/18 Unknown Rx Ibuprofen [Motrin] 600 mg PO Q8H PRN #20 tablet 05/08/19 Unknown Rx tiZANidine [Zanaflex 4mg TAB] 4 mg PO Q8H PRN #15 tablet 05/08/19 Unknown Rx traMADoL [Ultram] 50 mg PO Q6HR PRN #12 tablet 05/08/19 Unknown Rx Butalb/Acetamin/Caff 50-325-40 1 tab PO Q8HR PRN #10 tablet 04/08/20 Unknown Rx [Fioricet 50-325-40] metFORMIN [Glucophage] 500 mg PO BID 60 Days #60 tablet 04/08/20 Unknown Rx Acyclovir 400 mg PO TID 7 Days #21 tablet 08/04/20 Unknown Rx Doxycycline Hyclate [Doxycycline 100 mg PO BID 7 Days #14 tab 08/04/20 Unknown Rx Hyclate TAB] Fluconazole (Nf) [Diflucan TAB] 150 mg PO ONCE 1 Days #1 tablet 08/04/20 Unknown Rx cephALEXin [Keflex] 500 mg PO BID 7 Days #14 cap 08/04/20 Unknown Rx ED Physical Exam - General Limitations: No Limitations General appearance: alert, in no apparent distress - Head Head exam: Present: atraumatic, normocephalic - Eye Eye exam: Present: normal appearance - ENT ENT exam: Present: mucous membranes moist - Respiratory Respiratory exam: Present: normal lung sounds bilaterally. Absent: respiratory distress, wheezes, rales, rhonchi, stridor, chest wall tenderness, accessory muscle use, decreased breath sounds, prolonged expiratory - Cardiovascular Cardiovascular Exam: Present: regular rate, normal rhythm, normal heart sounds. Absent: systolic murmur, diastolic murmur, rubs, gallop - GI/Abdominal GI/Abdominal exam: Present: soft, normal bowel sounds. Absent: distended, tenderness, guarding, rebound, rigid - External exam: Present: other (shallow ulcerations present at the inner right labia and entrance of the vaginal canal) Speculum exam: Present: erythema, vaginal discharge, cervical discharge, vaginal bleeding (small amount), other (pilot captain: grazyna vega PA-C) Bi-manual exam: Present: normal bi-manual exam. Absent: cervical motion tendernes, adnexal tenderness, adnexal mass - Neurological Exam Neurological exam: Present: alert, oriented X3 - Psychiatric Psychiatric exam: Present: normal affect, normal mood - Skin Skin exam: Present: warm, dry ED Course Vital Signs 08/04/20 08/04/20 09:32 13:00 Temperature 98.0 F 99.1 F Pulse Rate 90 80 Respiratory 18 18 Rate Blood Pressure 196/102 [Left] Blood Pressure 213/112 157/93 [Right] O2 Sat by Pulse 99 97 Oximetry ED Medical Decision Making - Lab Data Lab Results 08/04/20 Range/Units Unknown Urine Color Yellow (Yellow) Urine Turbidity Cloudy (Clear) Urine pH 6.0 (5.0-7.0) Ur Specific [place] 1.028 (1.003-1.030) Urine Protein 30 mg/dl (Negative) mg/dL Urine Glucose (UA) >=500 (Negative) mg/dL Urine Ketones Neg (Negative) mg/dL Urine Blood Mod (Negative) Urine Nitrite Neg (Negative) Urine Bilirubin Neg (Negative) Urine Urobilinogen < 2.0 (<2.0) mg/dL Ur Leukocyte Esterase Lg (Negative) Urine WBC (Auto) > 182.0 H (0.0-6.0) /HPF Urine RBC (Auto) 30.0 (0.0-6.0) /HPF U Epithel Cells (Auto) 3.0 (0-13.0) /HPF Urine Bacteria (Auto) 2+ (Negative) /HPF Urine WBC Clumps 2+ /HPF Urine Mucus Few /HPF Urine HCG, Qual Negative (Negative) Vital Signs 08/04/20 08/04/20 09:32 13:00 Temperature 98.0 F 99.1 F Pulse Rate 90 80 Respiratory 18 18 Rate Blood Pressure 196/102 [Left] Blood Pressure 213/112 157/93 [Right] O2 Sat by Pulse 99 97 Oximetry - Medical Decision Making Patient is a 44-year-old female presents emergency room complaints of vaginal irritation that began a week ago. Patient states that she has had a new sexual partner and had unprotected intercourse and is embarrassed because she is concerned that she has an STD. She states that she has never had an STD in the past. She states that she has vaginal irritation, swelling, vaginal bleeding with wiping, yellow vaginal discharge, dysuria, vaginal pain. She denies any abdominal pain, back pain, nausea, vomiting, diarrhea, fever, chills. She has a past medical history of hypertension and diabetes, she states that she has not been compliant with her medication regimen, she states that she is making an appointment with her primary care physician. No allergies to medications. She states that she had a total hysterectomy. Initial vitals with elevated blood pressure which improved upon repeat. On exam:shallow ulcerations present at the inner right labia and entrance of the vaginal canal, vaginal and cervical discharge, small amount of vaginal bleeding, no CMT, no adnexal masses or tenderness, pilot captain Grazyna Vega PA-C. Urine is negative. UA shows evidence of significant bacteria and large leukocyte esterase. Wet prep is normal. G/C swab sent. Patient prophylactically treated for G/C with ceftriaxone and given a prescription for doxycycline. Ulcerations are concerning for potential herpes outbreak, patient will need to be seen in a clinic or the health department for a full STD panel, will treat patient for genital herpes. Patient given prescription for acyclovir and also given Keflex for UTI. Patient is concerned due to antibiotics that she may get a yeast infection, patient given fluconazole. Advised patient Please take medication as prescribed. Please go to medical records in 1 week for results of your test we have been treated for these today. Please go to a clinic or the health department for full STD panel, it is very important to have this completed. Please do not engage in sexual intercourse as there is concern for possible h erpes virus infection and this is contagious and lifelong. Please have any partner tested and treated as well. Return to emergency room for any new or worsening symptoms. please follow up with a primary care doctor regarding your chronic medical conditions. eat a low sodium diet. increase your water intake. incorporate 30-60 minutes of daily exercise. Critical care attestation.: If time is entered above; I have spent that time in minutes in the direct care of this critically ill patient, excluding procedure time. ED Disposition Clinical Impression: Concern about STD in female without diagnosis, Vaginal pain, Vaginal lesion UTI (urinary tract infection) Qualifiers: Urinary tract infection type: acute cystitis Hematuria presence: with hematuria Qualified Code(s): N30.01 - Acute cystitis with hematuria Disposition: DC- TO HOME OR SELFCARE Is pt being admited?: No Does the pt Need Aspirin: No Condition: Stable Instructions: Urinary Tract Infection, Adult, Genital Herpes, Safe Sex Additional Instructions: Please take medication as prescribed. Please go to medical records in 1 week for results of your test we have been treated for these today. Please go to a clinic or the health department for full STD panel, it is very important to have this completed. Please do not engage in sexual intercourse as there is concern for possible herpes virus infection and this is contagious and lifelong. Please have any partner tested and treated as well. Return to emergency room for any new or worsening symptoms. please follow up with a primary care doctor regarding your chronic medical conditions. eat a low sodium diet. increase your water intake. incorporate 30-60 minutes of daily exercise. Prescriptions: Acyclovir 400 mg PO TID 7 Days #21 tablet Fluconazole (Nf) [Diflucan TAB] 150 mg PO ONCE 1 Days #1 tablet Doxycycline Hyclate [Doxycycline Hyclate TAB] 100 mg PO BID 7 Days #14 tab cephALEXin [Keflex] 500 mg PO BID 7 Days #14 cap Referrals: [facility] [Outside] - 2-3 Days PRIMARY CAREMD [Primary Care Provider] - 2-3 Days FLORIAN MARISCAL MD [Staff Physician] - 2-3 Days [facility] [place] [Provider Group] - 2-3 Days [facility], [LAB/CONTRACT] - 2-3 Days Time of Disposition: 11:55 Print Language: TONGAN
[2020-08-04] MEDS ORDERED: LIDOCAINE-MPF (1%) 10 MG/1 ML VIAL 5 ML INFILTRATI ONE (11:26)
[2020-08-04 11:42] LABS: Bacteria,Urine 2+ /HPF (Negative); Bilirubin,Urine NEG (Negative); Blood,Urine MOD (Negative); Color,Urine Yellow (Yellow); Mucus,Urine FEW /HPF; Urobilinogen,Urine < 2.0 mg/dL (<2.0)
[2020-08-04 11:44] LABS: HCG Qualitative,Urine Negative (Negative); WBC,Urine > 182.0 /HPF (0.0-6.0)
[2020-08-04 13:01] VITALS: BP 157/93
[2020-08-04] MEDS ORDERED: ACETAMINOPHEN W/CODEINE 300-30 MG TAB PO ONE (13:09)
== END 2020-08-04 13:24 | disposition home or self-care (01) ==
LOC: ED 09:23
DX: N93.9 Abnormal uterine and vaginal bleeding, unspecified (principal); N39.0 Urinary tract infection, site not specified; I10 Essential (primary) hypertension; E11.9 Type 2 diabetes mellitus without complications; M19.90 Unspecified osteoarthritis, unspecified site; Z20.2 Contact with and (suspected) exposure to infections with a predominantly sexual mode of transmission; Z79.899 Other long term (current) drug therapy
CPT/HCPCS: 81001; 81025; 87210; 87591; 96372; 99284; J0696

== ENCOUNTER 2020-08-11 17:34 | Emergency (ER) | payer SELFPAY ==
[2020-08-11] MEDS ORDERED: SODIUM CHLORIDE 0.9% 1000 ML 1,000 ML IV ONE ×2 (18:32)
[2020-08-11 20:11] LABS: Alanine Aminotransferase 11 units/L (7-56); Albumin 4.2 g/dL (3.9-5); BUN/Creatinine Ratio 17; Blood Urea Nitrogen 15 mg/dL (7-17); Calcium 9.6 mg/dL (8.4-10.2); Hemolysis Index 6
[2020-08-11 20:20] LABS: Basophils % (Auto) 0.5 % (0.0-1.8); Eosinophils % (Auto) 0.8 % (0.0-4.3); Hematocrit 39.5 % (30.3-42.9); Hemoglobin 13.7 gm/dl (10.1-14.3); Lymphocytes # (Auto) 2.7 K/mm3 (1.2-5.4); Lymphocytes % (Auto) 45.1 % (13.4-35.0); Mean Corpuscular HGB Conc 35 % (30-34); Mean Corpuscular Volume 88 fl (79-97); Monocytes # (Auto) 0.4 K/mm3 (0.0-0.8); Platelet Count 154 K/mm3 (140-440); Red Blood Count 4.51 M/mm3 (3.65-5.03); Red Cell Distribution Width 12.7 % (13.2-15.2)
--- NOTE | 2020-08-11 20:40 | Event Note ---
ED Screening Note Date of service: 08/11/20 Time: 19:25 ED Screening Note: Patient is a 44-year-old -Filipino female with a history of poorly controlled [id number] diabetes who presents to the ED with complaint of acute onset persistent bilateral foot burning sensation and tingling for the last 1 week, worse in the last 2 days. Patient also complains of dry scaly rashes on her feet. Patient states that she is currently on doxycycline, acyclovir and Keflex which was prescribed for her for UTI and suspected STD. Patient denies swollen lips, swollen tongue, dysphagia, dysphonia, sore throat, nausea, fever and chills, vomiting, diarrhea, abdominal pain, itching or body rashes. This initial assessment/diagnostic orders/clinical plan/treatment(s) is/are subject to change based on patients health status, clinical progression and re- assessment by fellow clinical providers in the ED. Further treatment and workup at subsequent clinical providers discretion. Patient/guardian urged not to elope from the ED as their condition may be serious if not clinically assessed and managed. Initial orders include: CBC, CMP, urinalysis, normal saline 2 L IV bolus
[2020-08-11] MEDS ORDERED: INSULIN REGULAR, HUMAN 100 UNITS/1 ML SUB-Q ONE (21:32)
[2020-08-11] MEDS ORDERED: ACETAMINOPHEN 325 MG TAB PO ONE (21:32)
[2020-08-11] MEDS ORDERED: IBUPROFEN 400 MG TAB PO ONE (21:32)
[2020-08-11] MEDS ORDERED: diphenhydrAMINE 25 MG CAP PO ONE (21:33)
[2020-08-11] MEDS ORDERED: FAMOTIDINE 20 MG TAB PO ONE (21:33)
--- NOTE | 2020-08-11 21:34 | Emergency Department Report ---
ED General Adult HPI - General Chief complaint: Allergic Reaction Stated complaint: ALLERGIC REACTION/DIABETIC PUI?: No Time Seen by Provider: 08/11/20 21:21 Source: patient, RN notes reviewed, old records reviewed Mode of arrival: Ambulatory Limitations: No Limitations - History of Present Illness Initial comments: The patient was evaluated in the emergency department for symptoms described in the history of present illness. He/she was evaluated in the context of the global COVID-19 pandemic, which necessitated consideration that the patient might be at risk for infection with the virus that causes COVID-19. Institution al protocols and algorithms that pertain to the evaluation of patients at risk for COVID-19 are in a state of rapid change based on information released by regulatory bodies including the CDC and federal and state organizations. These policies and algorithms were followed during the patient's care in the emergency department. Please note that these policies, procedures and recommendations changed on a rapid basis. Given the history and physical examination, I am chaperoned by nurse Maryam Stone This is a 44-year-old female. She recently moved here from [place]. She has a distant history of hysterectomy and diabetes. She has been maintained on Metformin in the past. She was seen in this department about a week ago for nonspecific vaginal discomfort, and treated empirically for sexually transmitted infections, and cystitis. She was discharged with fluconazole, acyclovir, doxycycline, and Keflex. She presents to the ER today with a complaint of scaly skin on her bilateral feet. This has been present for about 7 days. There is no headache, neck pain, chest pain, abdominal pain or shortness of breath. No dysuria. Positive left lateral/dorsal foot myalgia/arthralgia. Positive chronic skin lesions. No vaginal irritation which is new, no rectal irritation which is new, no pharyngeal irritation. She also reports that she does not have a feminine napkin or feminine pad. She told me that she does not have a history of diabetes, but as per review of old medical records, she has been prescribed Metformin in the past, presumably for hyperglycemia. -: Gradual, days(s) Location: left, right, lower extremity (Bilateral feet) Quality: other (Itching) Consistency: constant Improves with: none Worsens with: none - Related Data Previous Rx's Medication Instructions Recorded Last Taken Type Acyclovir 800 mg PO 5XD #50 tablet 04/30/18 Unknown Rx Amitriptyline [Elavil] 25 mg PO QHS #14 tab 10/19/18 Unknown Rx Hydroxyzine HCl [hydrOXYzine] 50 mg PO Q12HR PRN #10 tablet 10/19/18 Unknown Rx Valacyclovir HCl [Valtrex] 1,000 mg PO TID 7 Days #21 tablet 10/19/18 Unknown Rx Ibuprofen [Motrin] 600 mg PO Q8H PRN #20 tablet 05/08/19 Unknown Rx Acyclovir 400 mg PO TID 7 Days #21 tablet 08/04/20 Unknown Rx Fluconazole (Nf) [Diflucan TAB] 150 mg PO ONCE 1 Days #1 tablet 08/04/20 Unknown Rx EPINEPHrine [Epipen 2-Fitz] 0.3 mg IM DAILY PRN #2 ml 08/11/20 Unknown Rx Famotidine [Pepcid] 20 mg PO BID #10 tablet 08/11/20 Unknown Rx Skin Emollient [Aquaphor (Nf)] 1 applic TP PRN PRN #1 jar 08/11/20 Unknown Rx diphenhydrAMINE [Benadryl] 50 mg PO Q8HR PRN #20 capsule 08/11/20 Unknown Rx metFORMIN [Glucophage] 500 mg PO BID 60 Days #60 tablet 08/11/20 Unknown Rx Allergies Allergy/AdvReac Type Severity Reaction Status Date / Time No Known Allergies Allergy Verified 05/07/19 18:22 ED Review of Systems ROS: Stated complaint: ALLERGIC REACTION/DIABETIC Other details as noted in HPI Constitutional: denies: fever, malaise Eyes: denies: eye discharge ENT: denies: congestion Respiratory: denies: cough Cardiovascular: denies: chest pain Genitourinary: denies: dysuria Musculoskeletal: arthralgia, myalgia Skin: lesions Hematological/Lymphatic: denies: easy bleeding ED Past Medical Hx - Past Medical History Previous Medical History?: Yes Hx Hypertension: Yes Hx Diabetes: Yes Hx Arthritis: Yes Additional medical history: Lupus, shingles - Surgical History Past Surgical History?: Yes Additional Surgical History: hysterectomy,spinal fusion,hand - Social History Smoking Status: Never Smoker Substance Use Type: None - Medications Home Medications: Home Medications Medication Instructions Recorded Confirmed Last Taken Type Acyclovir 800 mg PO 5XD #50 tablet 04/30/18 Unknown Rx Amitriptyline [Elavil] 25 mg PO QHS #14 tab 10/19/18 Unknown Rx Hydroxyzine HCl [hydrOXYzine] 50 mg PO Q12HR PRN #10 tablet 10/19/18 Unknown Rx Valacyclovir HCl [Valtrex] 1,000 mg PO TID 7 Days #21 tablet 10/19/18 Unknown Rx Ibuprofen [Motrin] 600 mg PO Q8H PRN #20 tablet 05/08/19 Unknown Rx Acyclovir 400 mg PO TID 7 Days #21 tablet 08/04/20 Unknown Rx Fluconazole (Nf) [Diflucan TAB] 150 mg PO ONCE 1 Days #1 tablet 08/04/20 Unknown Rx EPINEPHrine [Epipen 2-Fitz] 0.3 mg IM DAILY PRN #2 ml 08/11/20 Unknown Rx Famotidine [Pepcid] 20 mg PO BID #10 tablet 08/11/20 Unknown Rx Skin Emollient [Aquaphor (Nf)] 1 applic TP PRN PRN #1 jar 08/11/20 Unknown Rx diphenhydrAMINE [Benadryl] 50 mg PO Q8HR PRN #20 capsule 08/11/20 Unknown Rx metFORMIN [Glucophage] 500 mg PO BID 60 Days #60 tablet 08/11/20 Unknown Rx ED Physical Exam - General Limitations: No Limitations, Other (Chaperoned by Harlan Stone) General appearance: alert, in no apparent distress - Head Head exam: Present: atraumatic, normocephalic - Eye Eye exam: Present: normal appearance, EOMI. Absent: nystagmus - ENT ENT exam: Present: normal exam, normal orophraynx, mucous membranes moist, normal external ear exam - Neck Neck exam: Present: normal inspection, full ROM. Absent: tenderness, meningismus - Respiratory Respiratory exam: Present: normal lung sounds bilaterally. Absent: respiratory distress, wheezes, rales, rhonchi, stridor, decreased breath sounds - Cardiovascular Cardiovascular Exam: Present: regular rate, normal rhythm, normal heart sounds. Absent: bradycardia, tachycardia, irregular rhythm, systolic murmur, diastolic murmur, rubs, gallop - GI/Abdominal GI/Abdominal exam: Present: soft. Absent: distended, tenderness, guarding, rebound, rigid, pulsatile mass - Extremities Exam Extremities exam: Present: full ROM, other (2+ pulses noted in the bilateral upper and lower extremities. There is no palpable cord. negative Homans sign. Muscular compartments are soft. The pelvis is stable.). Absent: normal inspection (Chronic appearing diabetic ulcers noted on the bilateral lower extremities, without redness, pus or streaking), pedal edema, calf tenderness - Back Exam Back exam: Present: normal inspection, full ROM. Absent: tenderness, CVA tenderness (R), CVA tenderness (L), paraspinal tenderness, vertebral tenderness - Neurological Exam Neurological exam: Present: alert, other (No facial droop. Tongue midline. Extraocular movements intact bilaterally. Facial sensation intact to light touch in V1, V2, V3 distribution bilaterally. 5 and a 5 strength in 4 extremities. Sensation intact to light touch in 4 extremities.) - Psychiatric Psychiatric exam: Present: anxious - Skin Skin exam: Present: warm, other (Scaly skin noted on the bilateral feet. There is no redness, pus or streaking.). Absent: rash ED Course Vital Signs 08/11/20 08/11/20 08/11/20 17:36 21:30 23:29 Temperature 99.1 F 98 F Pulse Rate 99 H 16 L 81 Respiratory 18 16 13 Rate Blood Pressure 172/100 Blood Pressure 152/95 154/99 [Right] O2 Sat by Pulse 99 99 99 Oximetry - Reevaluation(s) Reevaluation #1: 08/11/20 22:25 Differential diagnosis, including but not limited to: Medication side effect, allergic reaction, hyperglycemia, noncompliance with diabetic therapy Assessment and plan: 44-year-old female, who was afebrile, with no history of fever, reassuring vital signs with the exception of elevated blood pressure, please reference the [employer] clinical policy on asymptomatic hypertension, presenting with a primary complaint of desquamation of essentially her bilateral feet. There is no fever, redness, pus, streaking, no vesicles, and no bullae. She does not endorse any oral, vaginal, or rectal complaints. Therefore, I think toxic epidermal necrolysis, Jones-Dayron syndrome very unlikely. Doxycycline may cause skin reaction, as well as Keflex. Patient has been on acyclovir in the past. We will treat her symptoms empirically, withhold steroids given hyperglycemia. Will reassess after her initial therapies have been initiated. 08/11/20 22:32 Reevaluation #2: 08/11/20 23:28 Hyperglycemia improved. Patient resting comfortably at this time, she is in no acute distress. ED Medical Decision Making - Lab Data Result diagrams: 08/11/20 19:28 08/11/20 19:28 Vital Signs 08/11/20 17:36 Temperature 99.1 F Pulse Rate 99 H Respiratory 18 Rate Blood Pressure 172/100 O2 Sat by Pulse 99 Oximetry Lab Results 08/11/20 08/11/20 08/11/20 Range/Units 17:43 19:28 19:28 WBC 6.0 (4.5-11.0) K/mm3 RBC 4.51 (3.65-5.03) M/mm3 Hgb 13.7 (10.1-14.3) gm/dl Hct 39.5 (30.3-42.9) % MCV 88 (79-97) fl MCH 30 (28-32) pg MCHC 35 H (30-34) % RDW 12.7 L (13.2-15.2) % Plt Count 154 (140-440) K/mm3 Lymph % (Auto) 45.1 H (13.4-35.0) % [place] % (Auto) 7.0 (0.0-7.3) % Eos % (Auto) 0.8 (0.0-4.3) % Baso % (Auto) 0.5 (0.0-1.8) % Lymph # (Auto) 2.7 (1.2-5.4) K/mm3 [place] # (Auto) 0.4 (0.0-0.8) K/mm3 Eos # (Auto) 0.0 (0.0-0.4) K/mm3 Baso # (Auto) 0.0 (0.0-0.1) K/mm3 Seg Neutrophils % 46.6 (40.0-70.0) % Seg Neutrophils # 2.8 (1.8-7.7) K/mm3 Sodium 136 L (137-145) mmol/L Potassium 4.2 (3.6-5.0) mmol/L Chloride 99.1 (98-107) mmol/L Carbon Dioxide 25 (22-30) mmol/L Anion Gap 16 mmol/L BUN 15 (7-17) mg/dL Creatinine 0.9 (0.6-1.2) mg/dL Estimated GFR > 60 ml/min BUN/Creatinine Ratio 17 % Glucose 358 H (65-100) mg/dL POC Glucose 433 H (70-105) mg/dL Calcium 9.6 (8.4-10.2) mg/dL Total Bilirubin 0.40 (0.1-1.2) mg/dL AST 11 (5-40) units/L ALT 11 (7-56) units/L Alkaline Phosphatase 125 (35-129) units/L Total Protein 6.5 (6.3-8.2) g/dL Albumin 4.2 (3.9-5) g/dL Albumin/Globulin Ratio 1.8 % Critical care attestation.: If time is entered above; I have spent that time in minutes in the direct care of this critically ill patient, excluding procedure time. ED Disposition Clinical Impression: Hyperglycemia, Dry skin Disposition: DC-01 TO HOME OR SELFCARE Is pt being admited?: No Does the pt Need Aspirin: No Condition: Good Instructions: Rash, Adult, Hyperglycemia, [id number] Additional Instructions: Discontinue Keflex, doxycycline. Take the medications as needed and directed. Use the Aquaphor or as often as as needed for dry skin. Use epinephrine pen only if patient develops inability to speak, inability to breathe, and tongue swelling. Please remain compliant with a diabetic friendly and appropriate diet. Patient may reference diabetes diet recommendations on the [employer] website. Please return to the emergency room right away with new pain, worsened pain, migration of pain, projectile vomiting, change in mental status, confusion, inability to tolerate liquid feeds, new pain, worsened pain, migration of pain, or any new, worsened or different symptoms not present on the initial emergency room evaluation. For the patient's convenience, numerous local primary care doctors have been l isted for her to follow-up with. Prescriptions: Skin Emollient [Aquaphor (Nf)] 1 applic TP PRN PRN #1 jar PRN Reason: Dry Skin diphenhydrAMINE [Benadryl] 50 mg PO Q8HR PRN #20 capsule PRN Reason: Allergic Reaction EPINEPHrine [Epipen 2-Fitz] 0.3 mg IM DAILY PRN #2 ml PRN Reason: Allergic Reaction metFORMIN [Glucophage] 500 mg PO BID 60 Days #60 tablet Famotidine [Pepcid] 20 mg PO BID #10 tablet Referrals: FLORIAN MARISCAL MD [Staff Physician] - 3-5 Days [facility] [Provider Group] - 3-5 Days
[2020-08-11 23:30] VITALS: BP 154/99
== END 2020-08-12 01:00 | disposition home or self-care (01) ==
LOC: ED 17:34
DX: E11.65 Type 2 diabetes mellitus with hyperglycemia (principal); L85.3 Xerosis cutis; I10 Essential (primary) hypertension; M19.90 Unspecified osteoarthritis, unspecified site; Z90.710 Acquired absence of both cervix and uterus; Z79.899 Other long term (current) drug therapy; Z98.890 Other specified postprocedural states
CPT/HCPCS: 36415; 80053; 82550; 82962; 85025; 96372; J1815

== ENCOUNTER 2020-09-07 03:56 | Emergency (ER) | payer SELFPAY ==
[2020-09-07 04:08] VITALS: BP 187/102
[2020-09-07] MEDS ORDERED: oxyCODONE /ACETAMINOPHEN 5-325MG TAB PO ONE ×2 (04:59→07:15)
[2020-09-07] MEDS ORDERED: IBUPROFEN 800 MG TAB PO ONE (04:59)
--- NOTE | 2020-09-07 05:02 | Event Note ---
ED Screening Note Date of service: 09/07/20 Time: 05:01 ED Screening Note: Patient complains of left-sided neck pain and swelling radiating into her left ear x2 weeks States suddenly worsening Patient states difficulty opening her jaw This initial assessment/diagnostic orders/clinical plan/treatment(s) is/are subject to change based on patients health status, clinical progression and re- assessment by fellow clinical providers in the ED. Further treatment and workup at subsequent clinical providers discretion. Patient/guardian urged not to elope from the ED as their condition may be serious if not clinically assessed and managed. Initial orders include: Labs CT neck
[2020-09-07 05:47] LABS: Basophils % (Auto) 0.5 % (0.0-1.8); Eosinophils # (Auto) 0.1 K/mm3 (0.0-0.4); Hematocrit 40.7 % (30.3-42.9); Hemoglobin 14.2 gm/dl (10.1-14.3); Lymphocytes # (Auto) 2.5 K/mm3 (1.2-5.4); Lymphocytes % (Auto) 38.1 % (13.4-35.0); Mean Corpuscular HGB Conc 35 % (30-34); Mean Corpuscular Volume 88 fl (79-97); Monocytes # (Auto) 0.4 K/mm3 (0.0-0.8); Monocytes % (Auto) 6.3 % (0.0-7.3); Platelet Count 141 K/mm3 (140-440); Red Blood Count 4.62 M/mm3 (3.65-5.03); Red Cell Distribution Width 12.9 % (13.2-15.2)
[2020-09-07 06:04] LABS: Blood Urea Nitrogen 11 mg/dL (7-17); Calcium 9.5 mg/dL (8.4-10.2); Hemolysis Index 3
[2020-09-07 06:13] LABS: BUN/Creatinine Ratio 16
[2020-09-07] MEDS ORDERED: SODIUM CHLORIDE 0.9% 1000 ML 1,000 ML IV ONE (07:13)
--- NOTE | 2020-09-07 07:21 | Emergency Department Report ---
ED ENT HPI - General Chief complaint: Earache Stated complaint: LEFT EARACHE Time Seen by Provider: 09/07/20 04:26 Source: patient Mode of arrival: Ambulatory Limitations: No Limitations - History of Present Illness Initial comments: 44-year-old female with a past medical history of diabetes, arthritis, and HTN presents to the ER today complaining of pain to her left ear. Patient states that the pain started 2 weeks ago. She states it has been getting worse. Patient also reports swelling to the anterior aspect of her left ear, below her left ear and behind her left ear. Patient also reports sore throat mainly on the left side. Denies any drainage from the left ear. She denies any injury to the left ear. She denies any other URI symptoms. She denies any fever or chills. MD complaint: ear pain -: Gradual, week(s) (2) - Related Data Previous Rx's Medication Instructions Recorded Last Taken Type Amitriptyline [Elavil] 25 mg PO QHS #14 tab 10/19/18 Unknown Rx EPINEPHrine [Epipen 2-Fitz] 0.3 mg IM DAILY PRN #2 ml 08/11/20 Unknown Rx Famotidine [Pepcid] 20 mg PO BID #10 tablet 08/11/20 Unknown Rx metFORMIN [Glucophage] 500 mg PO BID 60 Days #60 tablet 08/11/20 Unknown Rx Acetaminophen/Codeine [Tylenol 1 tab PO Q4HR PRN #12 tablet 09/07/20 Unknown Rx /Codeine # 3 tab] Clindamycin [Clindamycin CAP] 300 mg PO Q6H #40 capsule 09/07/20 Unknown Rx Ibuprofen [Motrin 600 MG tab] 600 mg PO Q8H PRN #20 tablet 09/07/20 Unknown Rx Allergies Allergy/AdvReac Type Severity Reaction Status Date / Time cephalexin [From Keflex] Allergy Unknown Verified 09/07/20 07:16 doxycycline Allergy Unknown Verified 09/07/20 07:16 ED Dental HPI - General Chief complaint: Earache Stated complaint: LEFT EARACHE Time Seen by Provider: 09/07/20 04:26 Source: patient Mode of arrival: Ambulatory Limitations: No Limitations - Related Data Previous Rx's Medication Instructions Recorded Last Taken Type Amitriptyline [Elavil] 25 mg PO QHS #14 tab 10/19/18 Unknown Rx EPINEPHrine [Epipen 2-Fitz] 0.3 mg IM DAILY PRN #2 ml 08/11/20 Unknown Rx Famotidine [Pepcid] 20 mg PO BID #10 tablet 08/11/20 Unknown Rx metFORMIN [Glucophage] 500 mg PO BID 60 Days #60 tablet 08/11/20 Unknown Rx Acetaminophen/Codeine [Tylenol 1 tab PO Q4HR PRN #12 tablet 09/07/20 Unknown Rx /Codeine # 3 tab] Clindamycin [Clindamycin CAP] 300 mg PO Q6H #40 capsule 09/07/20 Unknown Rx Ibuprofen [Motrin 600 MG tab] 600 mg PO Q8H PRN #20 tablet 09/07/20 Unknown Rx Allergies Allergy/AdvReac Type Severity Reaction Status Date / Time cephalexin [From Keflex] Allergy Unknown Verified 09/07/20 07:16 doxycycline Allergy Unknown Verified 09/07/20 07:16 ED Review of Systems ROS: Stated complaint: LEFT EARACHE Other details as noted in HPI Comment: All other systems reviewed and negative Constitutional: denies: chills, fever Eyes: denies: eye pain, eye discharge, vision change ENT: ear pain, throat pain. denies: dental pain, hearing loss, epistaxis, congestion Respiratory: denies: cough, orthopnea, shortness of breath, SOB with exertion, SOB at rest, stridor, wheezing Cardiovascular: denies: chest pain, palpitations Endocrine: no symptoms reported Gastrointestinal: denies: abdominal pain, nausea, diarrhea Genitourinary: denies: urgency, dysuria, discharge Musculoskeletal: denies: back pain, joint swelling, arthralgia Skin: denies: rash, lesions Neurological: denies: headache, weakness, paresthesias Psychiatric: denies: anxiety, depression Hematological/Lymphatic: denies: easy bleeding, easy bruising ED Past Medical Hx - Past Medical History Previous Medical History?: Yes Hx Hypertension: Yes Hx Diabetes: Yes Hx Arthritis: Yes Additional medical history: Lupus, shingles - Surgical History Past Surgical History?: Yes Additional Surgical History: hysterectomy,spinal fusion,hand - Social History Smoking Status: Never Smoker Substance Use Type: None - Medications Home Medications: Home Medications Medication Instructions Recorded Confirmed Last Taken Type Amitriptyline [Elavil] 25 mg PO QHS #14 tab 10/19/18 Unknown Rx EPINEPHrine [Epipen 2-Fitz] 0.3 mg IM DAILY PRN #2 ml 08/11/20 Unknown Rx Famotidine [Pepcid] 20 mg PO BID #10 tablet 08/11/20 Unknown Rx metFORMIN [Glucophage] 500 mg PO BID 60 Days #60 tablet 08/11/20 Unknown Rx Acetaminophen/Codeine [Tylenol 1 tab PO Q4HR PRN #12 tablet 09/07/20 Unknown Rx /Codeine # 3 tab] Clindamycin [Clindamycin CAP] 300 mg PO Q6H #40 capsule 09/07/20 Unknown Rx Ibuprofen [Motrin 600 MG tab] 600 mg PO Q8H PRN #20 tablet 09/07/20 Unknown Rx ED Physical Exam - General Limitations: No Limitations General appearance: alert, other (Patient appears uncomfortable, crying in pain.) - Head Head exam: Present: atraumatic, normocephalic, normal inspection - Eye Eye exam: Present: normal appearance, PERRL, EOMI Pupils: Present: normal accommodation - ENT ENT exam: Present: normal exam, normal orophraynx, mucous membranes moist - Expanded ENT Exam Expanded Ear exam: Present: other (Patient does have some mild swelling to the left preauricular area, and below the left earlobe; that area is exquisitely tender to palpate. No erythema or warmth noted. No mastoid tenderness or erythema or swelling to the mastoid.). Absent: auricular hematoma, auricular trauma TM/Canal exam: Effusion: Right TM, Left TM Mouth exam: Absent: drooling, trismus, muffled voice, tongue normal, tongue elevation, laceration Teeth exam: Present: other (No apparent dental abscess or tenderness noted.) Throat exam: Positive: normal inspection - Neck Neck exam: Present: normal inspection, full ROM, lymphadenopathy (Left prominent anterior cervical lymph node which is tender to palpate.). Absent: meningismus - Respiratory Respiratory exam: Absent: respiratory distress - Cardiovascular Cardiovascular Exam: Present: regular rate - Neurological Exam Neurological exam: Present: alert, oriented X3, CN II-XII intact, normal gait - Psychiatric Psychiatric exam: Present: agitated, anxious. Absent: homicidal ideation, suicidal ideation - Skin Skin exam: Present: intact ED Course Vital Signs 09/07/20 09/07/20 04:06 05:17 Temperature 98.3 F Pulse Rate 89 Respiratory 17 18 Rate Blood Pressure 187/102 O2 Sat by Pulse 100 Oximetry ED Medical Decision Making - Lab Data Result diagrams: 09/07/20 05:10 09/07/20 05:10 - Radiology Data Radiology results: report reviewed Patient: ULISES PONCE MR# : [id number] : 1975 Acct:[id number] Age/Sex: 44 / F ADM Date: 09/07/20 Loc: ED Attending Dr: Ordering Physician: SYEDA COLORADO Date of Service: 09/07/20 Procedure(s): CT neck w con Accession Number(s): [id number] cc: SYEDA STANISLAV CT NECK WITH CONTRAST INDICATION: Left neck pain and swelling for 2 weeks. COMPARISON: None available. TECHNIQUE: Routine CT of the neck is performed following intravenous contrast. All CT scans at this location are performed using CT dose reduction for ALARA by means of automated exposure control. CONTRAST: 100 mL Omnipaque 300 FINDINGS: Skull Base: No significant abnormality. Parotid, Carotid, Retropharyngeal, Prevertebral, Pharyngeal Mucosal, and Information Technology Auditor Spaces: No abnormal mass, enhancing lesion or other significant abnormality. Airway: Patent and without significant abnormality. Lymphatics: No lymphadenopathy. Vasculature: No significant abnormality. Osseous Structures: No significant abnormality Additional findings: A retention cyst versus polyp measuring 1.3 x 1.3 cm is seen in the right maxillary sinus. IMPRESSION: 1. No significant abnormality. Signer Name: Frandy Roman MD Signed: 09/07/2020 8:14 AM Workstation Name: [id number] Transcribed By: [place] Dictated By: Frandy Roman MD Electronically Authenticated By: Frandy Roman MD Signed Date/Time: 09/07/20813 DD/ 8 TD/TT: Print - Medical Decision Making 44-year-old female with a past medical history of diabetes, arthritis, and HTN presents to the ER today complaining of pain to her left ear. Patient states that the pain started 2 weeks ago. She states it has been getting worse. Patient also reports swelling to the anterior aspect of her left ear, below her left ear and behind her left ear. Patient also reports sore throat mainly on the left side. Denies any drainage from the left ear. She denies any injury to the left ear. She denies any other URI symptoms. She denies any fever or chills. CT soft tissue neck shows nothing acute. Labs unremarkable. Exact cause of patient symptoms at this time unclear -She does have mild swelling left periauricular area down to angle of mandible and there is sig ttp. No obvious cellulitis. DDx swollen preauricular lymph node versus paroditis vs early infection vs TMJ vs other - there is No otitis media/externa noted. No evidence of mastoiditis. No dental abscess. She is tolerating her secretions well, her airway is intact, she is not toxic or ill appearing. She is neurologically intact. Discussed lab/CT results with patient. Discussed DDX with patient. Given hx of DM, will give rx for antibiotics to cover for possible infection. Patient instructed to f/u with PCP and or ENT if her symptoms persist. She expressed understanding of instructions and agreed with plan. Patient stable at time of d/c. Critical care attestation.: If time is entered above; I have spent that time in minutes in the direct care of this critically ill patient, excluding procedure time. ED Disposition Clinical Impression: Preauricular adenopathy, Left ear pain Disposition: TO HOME OR SELFCARE Is pt being admited?: No Does the pt Need Aspirin: No Condition: Stable Instructions: Lymphadenopathy, Earache, Adult Additional Instructions: The clindamycin as prescribed. Take the Motrin and the hydrocodone as prescribed. I recommend that you follow-up with your primary care doctor and/or ENT this week for reevaluation. Return to the ER if your symptoms changes or worsens in any way. Prescriptions: Clindamycin [Clindamycin CAP] 300 mg PO Q6H #40 capsule Ibuprofen [Motrin 600 MG tab] 600 mg PO Q8H PRN #20 tablet PRN Reason: Pain Acetaminophen/Codeine [Tylenol /Codeine # 3 tab] 1 tab PO Q4HR PRN #12 tablet PRN Reason: Pain Referrals: PRIMARY CARE, [Primary Care Provider] - 3-5 Days EDWIN SANCHEZ MD [Staff Physician] - 3-5 Days Time of Disposition: 08:47
--- NOTE | 2020-09-07 08:18 | Cat Scan Report ---
CT NECK WITH CONTRAST INDICATION: Left neck pain and swelling for 2 weeks. COMPARISON: None available. TECHNIQUE: Routine CT of the neck is performed following intravenous contrast. All CT scans at this [facility] are performed using CT dose reduction for ALARA by means of automated exposure control. CONTRAST: 100 mL Omnipaque 300 FINDINGS: Skull Base: No significant abnormality. Parotid, Carotid, Retropharyngeal, Prevertebral, Pharyngeal Mucosal, and Home Health Care Social Worker Spaces: No abnorm al mass, enhancing lesion or other significant abnormality. Airway: Patent and without significant abnormality. Lymphatics: No lymphadenopathy. Vasculature: No significant abnormality. Osseous Structures: No significant abnormality Additional findings: A retention cyst versus polyp measuring 1.3 x 1.3 cm is seen in the right maxill david sinus. IMPRESSION: 1. No significant abnormality. Signer Name: Frandy Roman MD Signed: 09/07/2020 8:14 AM Workstation Name: [id number]
== END 2020-09-07 09:03 | disposition home or self-care (01) ==
LOC: ED 03:56
DX: H92.02 Otalgia, left ear (principal); R59.0 Localized enlarged lymph nodes; I10 Essential (primary) hypertension; M19.90 Unspecified osteoarthritis, unspecified site; E11.9 Type 2 diabetes mellitus without complications; Z79.899 Other long term (current) drug therapy; Z88.8 Allergy status to other drugs, medicaments and biological substances; Z90.710 Acquired absence of both cervix and uterus; Z98.890 Other specified postprocedural states
CPT/HCPCS: 36415; 70491; 80048; 85025; 99284; Q9967

== ENCOUNTER 2021-01-04 00:30 | Emergency (ER) | payer SELFPAY ==
[2021-01-04] MEDS ORDERED: KETOROLAC 60 MG/2 ML INJ IM STA (03:39)
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
[2021-01-04] MEDS ORDERED: HYDROcodone/ACETAMINOPHEN 5-325 MG TAB PO STA (06:03)
[2021-01-04 06:50] VITALS: BP 154/100
== END 2021-01-04 06:45 | disposition home or self-care (01) ==
LOC: ED 00:30
DX: S70.02XA Contusion of left hip, initial encounter (principal); S30.0XXA Contusion of lower back and pelvis, initial encounter; I10 Essential (primary) hypertension; E11.9 Type 2 diabetes mellitus without complications; J45.909 Unspecified asthma, uncomplicated; Z90.710 Acquired absence of both cervix and uterus; Z98.890 Other specified postprocedural states; Z79.899 Other long term (current) drug therapy; Z88.1 Allergy status to other antibiotic agents; W18.39XA Other fall on same level, initial encounter; Y93.89 Activity, other specified; Y92.89 Other specified places as the place of occurrence of the external cause; Y99.8 Other external cause status
CPT/HCPCS: 72100; 73502; 96372; 99283; J1885

== ENCOUNTER 2021-02-10 18:24 | Emergency (ER) | payer SELFPAY ==
[2021-02-10 21:06] VITALS: BP 158/107
--- NOTE | 2021-02-10 22:37 | Emergency Department Report ---
- General Chief complaint: Skin Rash Stated complaint: SCABIES Time Seen by Provider: 02/10/21 22:20 Source: patient Mode of arrival: Ambulatory Limitations: No Limitations - History of Present Illness Initial comments: 45-year-old abdomen female presents emerge department complaining of a rash diffusely to her body which she thinks secondary to scabies from pain questionable sanitary locations and having had this in the past. States that the ofqo-mhy-wcleayw treatment did not improve her symptoms she tried to take Benadryl that did not medicate her pruritus. No fever, chills, sweats no nausea vomiting or diarrhea MD complaint: rash, insect bite/sting Location: generalized Severity: mild Quality: dull Consistency: constant Improves with: none Worsens with: none Associated symptoms: denies other symptoms Treatments Prior to Arrival: none - Related Data Previous Rx's Medication Instructions Recorded Last Taken Type Amitriptyline [Elavil] 25 mg PO QHS #14 tab 10/19/18 Unknown Rx EPINEPHrine [Epipen 2-Fitz] 0.3 mg IM DAILY PRN #2 ml 08/11/20 Unknown Rx Famotidine [Pepcid] 20 mg PO BID #10 tablet 08/11/20 Unknown Rx metFORMIN [Glucophage] 500 mg PO BID 60 Days #60 tablet 08/11/20 Unknown Rx Acetaminophen/Codeine [Tylenol 1 tab PO Q4HR PRN #12 tablet 09/07/20 Unknown Rx /Codeine # 3 tab] Clindamycin [Clindamycin CAP] 300 mg PO Q6H #40 capsule 09/07/20 Unknown Rx Ibuprofen [Motrin 600 MG tab] 600 mg PO Q8H PRN #20 tablet 09/07/20 Unknown Rx Ketorolac [Toradol] 10 mg PO Q6H PRN #10 tablet 01/04/21 Unknown Rx methOCARBAMOL [Robaxin TAB] 750 mg PO Q8H #20 tablet 01/04/21 Unknown Rx Betamethasone/Propylene Glyc 1 gm TP BID #50 oint...g. 02/10/21 Unknown Rx [Diprolene 0.05% Ointment] Permethrin 5% [Acticin 5% CREAM] 1 applicatio TP ONCE #1 tube 02/10/21 Unknown Rx hydrOXYzine HCL [Atarax] 25 mg PO Q6HR PRN #20 tablet 02/10/21 Unknown Rx Allergies Allergy/AdvReac Type Severity Reaction Status Date / Time cephalexin [From Keflex] Allergy Unknown Verified 09/07/20 07:16 doxycycline Allergy Unknown Verified 09/07/20 07:16 Abscess Boil HPI - HPI Chief Complaint: Skin Rash Stated Complaint: SCABIES Time Seen by Provider: 02/10/21 22:20 Home Medications: Previous Rx's Medication Instructions Recorded Last Taken Type Amitriptyline [Elavil] 25 mg PO QHS #14 tab 10/19/18 Unknown Rx EPINEPHrine [Epipen 2-Fitz] 0.3 mg IM DAILY PRN #2 ml 08/11/20 Unknown Rx Famotidine [Pepcid] 20 mg PO BID #10 tablet 08/11/20 Unknown Rx metFORMIN [Glucophage] 500 mg PO BID 60 Days #60 tablet 08/11/20 Unknown Rx Acetaminophen/Codeine [Tylenol 1 tab PO Q4HR PRN #12 tablet 09/07/20 Unknown Rx /Codeine # 3 tab] Clindamycin [Clindamycin CAP] 300 mg PO Q6H #40 capsule 09/07/20 Unknown Rx Ibuprofen [Motrin 600 MG tab] 600 mg PO Q8H PRN #20 tablet 09/07/20 Unknown Rx Ketorolac [Toradol] 10 mg PO Q6H PRN #10 tablet 01/04/21 Unknown Rx methOCARBAMOL [Robaxin TAB] 750 mg PO Q8H #20 tablet 01/04/21 Unknown Rx Betamethasone/Propylene Glyc 1 gm TP BID #50 oint...g. 02/10/21 Unknown Rx [Diprolene 0.05% Ointment] Permethrin 5% [Acticin 5% CREAM] 1 applicatio TP ONCE #1 tube 02/10/21 Unknown Rx hydrOXYzine HCL [Atarax] 25 mg PO Q6HR PRN #20 tablet 02/10/21 Unknown Rx Allergies/Adverse Reactions: Allergies Allergy/AdvReac Type Severity Reaction Status Date / Time cephalexin [From Keflex] Allergy Unknown Verified 09/07/20 07:16 doxycycline Allergy Unknown Verified 09/07/20 07:16 ED Review of Systems ROS: Stated complaint: SCABIES Other details as noted in HPI Comment: All other systems reviewed and negative ED Past Medical Hx - Past Medical History Previous Medical History?: Yes Hx Hypertension: Yes Hx Diabetes: Yes Hx Arthritis: Yes Additional medical history: Lupus, shingles - Surgical History Past Surgical History?: Yes Additional Surgical History: hysterectomy,spinal fusion,hand - Social History Smoking Status: Never Smoker Substance Use Type: None - Medications Home Medications: Home Medications Medication Instructions Recorded Confirmed Last Taken Type Amitriptyline [Elavil] 25 mg PO QHS #14 tab 10/19/18 Unknown Rx EPINEPHrine [Epipen 2-Fitz] 0.3 mg IM DAILY PRN #2 ml 08/11/20 Unknown Rx Famotidine [Pepcid] 20 mg PO BID #10 tablet 08/11/20 Unknown Rx metFORMIN [Glucophage] 500 mg PO BID 60 Days #60 tablet 08/11/20 Unknown Rx Acetaminophen/Codeine [Tylenol 1 tab PO Q4HR PRN #12 tablet 09/07/20 Unknown Rx /Codeine # 3 tab] Clindamycin [Clindamycin CAP] 300 mg PO Q6H #40 capsule 09/07/20 Unknown Rx Ibuprofen [Motrin 600 MG tab] 600 mg PO Q8H PRN #20 tablet 09/07/20 Unknown Rx Ketorolac [Toradol] 10 mg PO Q6H PRN #10 tablet 01/04/21 Unknown Rx methOCARBAMOL [Robaxin TAB] 750 mg PO Q8H #20 tablet 01/04/21 Unknown Rx Betamethasone/Propylene Glyc 1 gm TP BID #50 oint...g. 02/10/21 Unknown Rx [Diprolene 0.05% Ointment] Permethrin 5% [Acticin 5% CREAM] 1 applicatio TP ONCE #1 tube 02/10/21 Unknown Rx hydrOXYzine HCL [Atarax] 25 mg PO Q6HR PRN #20 tablet 02/10/21 Unknown Rx ED Physical Exam - General Limitations: No Limitations General appearance: alert, in no apparent distress - Head Head exam: Present: atraumatic, normocephalic - Eye Eye exam: Present: normal appearance, PERRL, EOMI - ENT ENT exam: Present: mucous membranes moist - Neck Neck exam: Present: normal inspection, full ROM - Respiratory Respiratory exam: Present: normal lung sounds bilaterally. Absent: respiratory distress - Cardiovascular Cardiovascular Exam: Present: regular rate, normal rhythm. Absent: systolic murmur, diastolic murmur, rubs, gallop - GI/Abdominal GI/Abdominal exam: Present: soft, normal bowel sounds - Extremities Exam Extremities exam: Present: normal inspection - Back Exam Back exam: Present: normal inspection - Neurological Exam Neurological exam: Present: alert, oriented X3, CN II-XII intact, normal gait - Psychiatric Psychiatric exam: Present: normal affect, normal mood. Absent: flat affect, manic - Skin Skin exam: Present: warm, dry, intact, rash (Between the webs of the fingers and the gluteal cleft region in the crease crease of the knee and upper extremities scaly type rash MS serpiginous type fashion but no has a). Absent: diaphoretic, erythema ED Course Vital Signs 02/10/21 21:01 Temperature 98.3 F Pulse Rate 84 Respiratory 18 Rate Blood Pressure 158/107 O2 Sat by Pulse 100 Oximetry Critical care attestation.: If time is entered above; I have spent that time in minutes in the direct care of this critically ill patient, excluding procedure time. ED Disposition Clinical Impression: Rash and nonspecific skin eruption, Scabies Disposition: TO HOME OR SELFCARE Is pt being admited?: No Does the pt Need Aspirin: No Condition: Stable Instructions: Rash, Adult, Scabies, Adult, Rash, Adult, Efct-fd-Duyj Prescriptions: Permethrin 5% [Acticin 5% CREAM] 1 applicatio TP ONCE #1 tube hydrOXYzine HCL [Atarax] 25 mg PO Q6HR PRN #20 tablet PRN Reason: Itching Betamethasone/Propylene Glyc [Diprolene 0.05% Ointment] 1 gm TP BID #50 oint. ..g. Referrals: [facility] [Provider Group] - 3-5 Days
== END 2021-02-10 23:00 | disposition home or self-care (01) ==
LOC: ED 18:24
DX: B86 Scabies (principal); I10 Essential (primary) hypertension; E11.9 Type 2 diabetes mellitus without complications
CPT/HCPCS: 99281

== ENCOUNTER 2021-03-25 18:07 | Emergency (ER) | payer SELFPAY ==
--- NOTE | 2021-03-25 22:12 | XRay Report ---
CHEST 2 VIEWS INDICATION / CLINICAL INFORMATION: chest pain and swelling. COMPARISON: None available. FINDINGS: SUPPORT DEVICES: None. HEART / MEDIASTINUM: No significant abnormality. LUNGS / PLEURA: No significant pulmonary or pleural abnormality. No pneumothorax. ADDITIONAL FINDINGS: Partial visualization lower cervical hardware. IMPRESSION: 1. No acute findings. Signer Name: Luther Sargent DO Signed: 03/25/2021 10:07 PM Workstation Name: [id number]
[2021-03-25 22:29] LABS: Alanine Aminotransferase 27 units/L (7-56); Albumin 4.4 g/dL (3.9-5); Blood Urea Nitrogen 10 mg/dL (7-17); Calcium 9.4 mg/dL (8.4-10.2); Hemolysis Index 8
[2021-03-25 22:35] LABS: Basophils % (Auto) 0.3 % (0.0-1.8); Eosinophils % (Auto) 0.8 % (0.0-4.3); Hematocrit 37.8 % (30.3-42.9); Hemoglobin 12.8 gm/dl (10.1-14.3); Lymphocytes # (Auto) 2.3 K/mm3 (1.2-5.4); Lymphocytes % (Auto) 41.4 % (13.4-35.0); Mean Corpuscular HGB Conc 34 % (30-34); Mean Corpuscular Volume 90 fl (79-97); Monocytes # (Auto) 0.4 K/mm3 (0.0-0.8); Monocytes % (Auto) 6.4 % (0.0-7.3); Platelet Count 148 K/mm3 (140-440); Red Blood Count 4.18 M/mm3 (3.65-5.03); Red Cell Distribution Width 13.1 % (13.2-15.2)
[2021-03-25 22:45] LABS: BUN/Creatinine Ratio 14
--- NOTE | 2021-03-26 00:18 | Emergency Department Report ---
ED General Adult HPI - General Chief complaint: Chest Pain Stated complaint: CHEST PAIN Time Seen by Provider: 03/25/21 21:23 Source: patient Mode of arrival: Ambulatory Limitations: No Limitations - History of Present Illness Initial comments: 45-year-old F Afghan female presents emerge department complaining of swelling to her lower extremities and hands after starting Norvasc about 2 weeks ago to control her blood pressure. She is currently taking lisinopril but needed the added protection. The swelling began treatment experiencing some some discomfort to her ankles and feet and some increased coughing and feel that she may have some fluid on her lungs as well. She reports no history of heart failure reports no fever, chills, sweats. No hemoptysis no hematemesis hematochezia no traumatic injuries. No lip swelling no signs of any allergic reaction -: Gradual Radiation: non-radiation Quality: dull Consistency: constant Worsens with: none Associated Symptoms: denies other symptoms Treatments Prior to Arrival: none - Related Data Previous Rx's Medication Instructions Recorded Last Taken Type Amitriptyline [Elavil] 25 mg PO QHS #14 tab 10/19/18 Unknown Rx EPINEPHrine [Epipen 2-Fitz] 0.3 mg IM DAILY PRN #2 ml 08/11/20 Unknown Rx Famotidine [Pepcid] 20 mg PO BID #10 tablet 08/11/20 Unknown Rx metFORMIN [Glucophage] 500 mg PO BID 60 Days #60 tablet 08/11/20 Unknown Rx Acetaminophen/Codeine [Tylenol 1 tab PO Q4HR PRN #12 tablet 09/07/20 Unknown Rx /Codeine # 3 tab] Clindamycin [Clindamycin CAP] 300 mg PO Q6H #40 capsule 09/07/20 Unknown Rx Ibuprofen [Motrin 600 MG tab] 600 mg PO Q8H PRN #20 tablet 09/07/20 Unknown Rx Ketorolac [Toradol] 10 mg PO Q6H PRN #10 tablet 01/04/21 Unknown Rx methOCARBAMOL [Robaxin TAB] 750 mg PO Q8H #20 tablet 01/04/21 Unknown Rx Betamethasone/Propylene Glyc 1 gm TP BID #50 oint...g. 02/10/21 Unknown Rx [Diprolene 0.05% Ointment] Permethrin 5% [Acticin 5% CREAM] 1 applicatio TP ONCE #1 tube 02/10/21 Unknown Rx hydrOXYzine HCL [Atarax] 25 mg PO Q6HR PRN #20 tablet 02/10/21 Unknown Rx Allergies Allergy/AdvReac Type Severity Reaction Status Date / Time cephalexin [From Keflex] Allergy Unknown Verified 09/07/20 07:16 doxycycline Allergy Unknown Verified 09/07/20 07:16 ED Review of Systems ROS: Stated complaint: CHEST PAIN Other details as noted in HPI Comment: All other systems reviewed and negative ED Past Medical Hx - Past Medical History Hx Hypertension: Yes Hx Diabetes: Yes Hx Arthritis: Yes Additional medical history: Lupus, shingles - Surgical History Additional Surgical History: hysterectomy,spinal fusion,hand - Social History Smoking Status: Never Smoker Substance Use Type: None - Medications Home Medications: Home Medications Medication Instructions Recorded Confirmed Last Taken Type Amitriptyline [Elavil] 25 mg PO QHS #14 tab 10/19/18 Unknown Rx EPINEPHrine [Epipen 2-Fitz] 0.3 mg IM DAILY PRN #2 ml 08/11/20 Unknown Rx Famotidine [Pepcid] 20 mg PO BID #10 tablet 08/11/20 Unknown Rx metFORMIN [Glucophage] 500 mg PO BID 60 Days #60 tablet 08/11/20 Unknown Rx Acetaminophen/Codeine [Tylenol 1 tab PO Q4HR PRN #12 tablet 09/07/20 Unknown Rx /Codeine # 3 tab] Clindamycin [Clindamycin CAP] 300 mg PO Q6H #40 capsule 09/07/20 Unknown Rx Ibuprofen [Motrin 600 MG tab] 600 mg PO Q8H PRN #20 tablet 09/07/20 Unknown Rx Ketorolac [Toradol] 10 mg PO Q6H PRN #10 tablet 01/04/21 Unknown Rx methOCARBAMOL [Robaxin TAB] 750 mg PO Q8H #20 tablet 01/04/21 Unknown Rx Betamethasone/Propylene Glyc 1 gm TP BID #50 oint...g. 02/10/21 Unknown Rx [Diprolene 0.05% Ointment] Permethrin 5% [Acticin 5% CREAM] 1 applicatio TP ONCE #1 tube 02/10/21 Unknown Rx hydrOXYzine HCL [Atarax] 25 mg PO Q6HR PRN #20 tablet 02/10/21 Unknown Rx ED Physical Exam - General Limitations: No Limitations General appearance: alert, in no apparent distress - Head Head exam: Present: atraumatic, normocephalic - Eye Eye exam: Present: normal appearance, PERRL, EOMI Pupils: Present: normal accommodation - ENT ENT exam: Present: mucous membranes moist - Neck Neck exam: Present: normal inspection, full ROM - Respiratory Respiratory exam: Present: normal lung sounds bilaterally. Absent: respiratory distress - Cardiovascular Cardiovascular Exam: Present: regular rate, normal rhythm. Absent: systolic murmur, diastolic murmur, rubs, gallop - GI/Abdominal GI/Abdominal exam: Present: soft, normal bowel sounds. Absent: distended, tenderness - Extremities Exam Extremities exam: Present: normal inspection, pedal edema (1+ pitting .), joint swelling - Back Exam Back exam: Present: normal inspection. Absent: CVA tenderness (R), CVA te nderness (L) - Neurological Exam Neurological exam: Present: alert, oriented X3, CN II-XII intact, normal gait - Psychiatric Psychiatric exam: Present: normal affect, normal mood - Skin Skin exam: Present: warm, dry, intact, normal color. Absent: rash ED Course Vital Signs 03/26/21 00:52 Pulse Rate 79 Respiratory 18 Rate Blood Pressure 179/101 [Right] O2 Sat by Pulse 99 Oximetry ED Medical Decision Making - Lab Data Result diagrams: 03/25/21 21:56 03/25/21 21:56 - Radiology Data Radiology results: report reviewed CXR Clear Critical care attestation.: If time is entered above; I have spent that time in minutes in the direct care of this critically ill patient, excluding procedure time. ED Disposition Clinical Impression: Medication adverse effect, Edema, peripheral Disposition: 01 HOME / SELF CARE / HOMELESS Is pt being admited?: No Does the pt Need Aspirin: No Condition: Stable Instructions: Edema, Edema, Knhb-pm-Guxm, Peripheral Edema Additional Instructions: Evaluate emergency department today for swelling to your extremity and general aches. Your evaluation has shown no medicals conditions requiring emergent intervention at this time, however recommend that you follow-up with your primary care physician or your transitional care liaison soon as possible for further testing as an outpatient. You may need to have a medication added to reduce the fluid build up associated with Norvasc or adjust your medications all together. Please schedule an appointment for follow-up with your primary care physician as soon as possible. Return to emergency department if you expands worsening uncontrolled chest pain, shortness of breath, lightheadedness, feeling faint, nausea, vomiting or any other concerning symptoms. Referrals: PRIMARY CARE, [Primary Care Provider] - 3-5 Days
[2021-03-26 00:54] VITALS: BP 179/101
--- NOTE | 2021-03-27 08:45 | Electrocardiograph Report ---
[facility] Test Date: 2021-03-25 Test Time: 18:19:16 Pat Name: ULISES PONCE Department: Room: Gender: F Smog Technician: EVERARDO : 1975 Requested By: JOHN MEJIA III Order Number: [id number] Reading MD: Steven Sharma Measurements Intervals [place] Rate: 63 P: 50 DE: 122 QRS: 37 QRSD: 60 T: 47 QT: 401 QTc: 411 Interpretive Statements Sinus rhythm No previous ECG available for comparison Electronically Signed On 03-27-2021 8:44:52 EDT by Steven Sharma
== END 2021-03-26 00:52 | disposition home or self-care (01) ==
LOC: ED 18:07
DX: R60.9 Edema, unspecified (principal); T50.905A Adverse effect of unspecified drugs, medicaments and biological substances, initial encounter; I10 Essential (primary) hypertension; E11.8 Type 2 diabetes mellitus with unspecified complications; M19.90 Unspecified osteoarthritis, unspecified site; M32.9 Systemic lupus erythematosus, unspecified; Z98.890 Other specified postprocedural states; Z88.1 Allergy status to other antibiotic agents; Y92.89 Other specified places as the place of occurrence of the external cause
CPT/HCPCS: 36415; 71046; 80053; 85025; 93005; 99283

== ENCOUNTER 2021-05-12 18:10 | Emergency (ER) | payer SELFPAY ==
--- NOTE | 2021-05-12 20:47 | Emergency Department Report ---
ED Abdominal Pain HPI - General Chief Complaint: Abdominal Pain Stated Complaint: ABDOMINAL PAIN Time Seen by Provider: 05/12/21 20:37 Source: patient Mode of arrival: Ambulatory Limitations: No Limitations - History of Present Illness Initial Comments: Patient four 5-year-old -[place] female with a history of hypertension diabetes type 2 and renal stones. Patient complains of bilateral lower abdominal pain radiating to epigastric and right flank with urinary frequency urgency and some dysuria. Patient denies hematuria. No fever no chills there is intermittent nausea and vomiting however. As are exacerbated by nothing per patient. Symptoms are relieved by nothing tried. Patient has not seen primary care doctor in the last 6 months. She does have follow-up appointment with [facility] . Rates symptoms at 11/10 at this time. P.o. intake was 2 hours ago without nausea vomiting. MD Complaint: abdominal pain - Related Data Previous Rx's Medication Instructions Recorded Last Taken Type Amitriptyline [Elavil] 25 mg PO QHS #14 tab 10/19/18 Unknown Rx EPINEPHrine [Epipen 2-Fitz] 0.3 mg IM DAILY PRN #2 ml 08/11/20 Unknown Rx Famotidine [Pepcid] 20 mg PO BID #10 tablet 08/11/20 Unknown Rx metFORMIN [Glucophage] 500 mg PO BID 60 Days #60 tablet 08/11/20 Unknown Rx Acetaminophen/Codeine [Tylenol 1 tab PO Q4HR PRN #12 tablet 09/07/20 Unknown Rx /Codeine # 3 tab] Clindamycin [Clindamycin CAP] 300 mg PO Q6H #40 capsule 09/07/20 Unknown Rx Ibuprofen [Motrin 600 MG tab] 600 mg PO Q8H PRN #20 tablet 09/07/20 Unknown Rx Ketorolac [Toradol] 10 mg PO Q6H PRN #10 tablet 01/04/21 Unknown Rx methOCARBAMOL [Robaxin TAB] 750 mg PO Q8H #20 tablet 01/04/21 Unknown Rx Betamethasone/Propylene Glyc 1 gm TP BID #50 oint...g. 02/10/21 Unknown Rx [Diprolene 0.05% Ointment] Permethrin 5% [Acticin 5% CREAM] 1 applicatio TP ONCE #1 tube 02/10/21 Unknown Rx hydrOXYzine HCL [Atarax] 25 mg PO Q6HR PRN #20 tablet 02/10/21 Unknown Rx Ondansetron [Zofran Odt] 4 mg PO Q8HR PRN #12 tab.rapdis 05/13/21 Unknown Rx Sucralfate [Carafate] 1 gm PO ACHS #40 udc 05/13/21 Unknown Rx Allergies Allergy/AdvReac Type Severity Reaction Status Date / Time cephalexin [From Keflex] Allergy Unknown Verified 05/12/21 20:09 doxycycline Allergy Unknown Verified 05/12/21 20:09 ED Review of Systems ROS: Stated complaint: ABDOMINAL PAIN Other details as noted in HPI Constitutional: malaise Eyes: denies: eye pain, eye discharge, vision change ENT: denies: ear pain, throat pain Respiratory: denies: cough, shortness of breath, wheezing Cardiovascular: denies: chest pain, palpitations Endocrine: no symptoms reported Gastrointestinal: abdominal pain, nausea, vomiting. denies: diarrhea, constipation Genitourinary: denies: urgency, dysuria, discharge Musculoskeletal: back pain Skin: denies: rash, lesions Neurological: denies: headache, weakness, paresthesias Psychiatric: denies: anxiety, depression Hematological/Lymphatic: denies: easy bleeding, easy bruising ED Past Medical Hx - Past Medical History Hx Hypertension: Yes Hx Diabetes: Yes Hx Arthritis: Yes Additional medical history: Lupus, shingles - Surgical History Additional Surgical History: hysterectomy,spinal fusion,hand - Social History Smoking Status: Never Smoker Substance Use Type: None - Medications Home Medications: Home Medications Medication Instructions Recorded Confirmed Last Taken Type Amitriptyline [Elavil] 25 mg PO QHS #14 tab 10/19/18 Unknown Rx EPINEPHrine [Epipen 2-Fitz] 0.3 mg IM DAILY PRN #2 ml 08/11/20 Unknown Rx Famotidine [Pepcid] 20 mg PO BID #10 tablet 08/11/20 Unknown Rx metFORMIN [Glucophage] 500 mg PO BID 60 Days #60 tablet 08/11/20 Unknown Rx Acetaminophen/Codeine [Tylenol 1 tab PO Q4HR PRN #12 tablet 09/07/20 Unknown Rx /Codeine # 3 tab] Clindamycin [Clindamycin CAP] 300 mg PO Q6H #40 capsule 09/07/20 Unknown Rx Ibuprofen [Motrin 600 MG tab] 600 mg PO Q8H PRN #20 tablet 09/07/20 Unknown Rx Ketorolac [Toradol] 10 mg PO Q6H PRN #10 tablet 01/04/21 Unknown Rx methOCARBAMOL [Robaxin TAB] 750 mg PO Q8H #20 tablet 01/04/21 Unknown Rx Betamethasone/Propylene Glyc 1 gm TP BID #50 oint...g. 02/10/21 Unknown Rx [Diprolene 0.05% Ointment] Permethrin 5% [Acticin 5% CREAM] 1 applicatio TP ONCE #1 tube 02/10/21 Unknown Rx hydrOXYzine HCL [Atarax] 25 mg PO Q6HR PRN #20 tablet 02/10/21 Unknown Rx Ondansetron [Zofran Odt] 4 mg PO Q8HR PRN #12 tab.rapdis 05/13/21 Unknown Rx Sucralfate [Carafate] 1 gm PO ACHS #40 udc 05/13/21 Unknown Rx ED Physical Exam - General Limitations: No Limitations General appearance: alert, in no apparent distress - Head Head exam: Present: atraumatic, normocephalic - Eye Eye exam: Present: normal appearance, EOMI Pupils: Present: normal accommodation - ENT ENT exam: Present: mucous membranes moist - Neck Neck exam: Present: normal inspection, full ROM. Absent: tenderness - Respiratory Respiratory exam: Present: normal lung sounds bilaterally. Absent: respiratory distress, wheezes - Cardiovascular Cardiovascular Exam: Present: regular rate, normal rhythm, normal heart sounds. Absent: systolic murmur, diastolic murmur, rubs, gallop - GI/Abdominal GI/Abdominal exam: Present: soft, normal bowel sounds. Absent: distended, tenderness, guarding, rebound, rigid, bruit, hernia - Rectal Rectal exam: Present: deferred - Extremities Exam Extremities exam: Present: normal inspection. Absent: full ROM - Back Exam Back exam: Present: normal inspection, full ROM, CVA tenderness (R), CVA tenderness (L) - Neurological Exam Neurological exam: Present: alert, oriented X3, CN II-XII intact, normal gait - Psychiatric Psychiatric exam: Present: normal affect, normal mood - Skin Skin exam: Present: warm, dry, intact, normal color. Absent: rash ED Medical Decision Making - Lab Data Result diagrams: 05/12/21 20:43 05/12/21 20:43 Labs 05/12/21 05/12/21 05/12/21 20:43 20:43 Unknown WBC 6.1 RBC 4.76 Hgb 14.1 Hct 41.2 MCV 87 MCH 30 MCHC 34 RDW 12.1 L Plt Count 184 Lymph % (Auto) 48.2 H [place] % (Auto) 6.5 Eos % (Auto) 0.5 Baso % (Auto) 0.3 Lymph # (Auto) 2.9 [place] # (Auto) 0.4 Eos # (Auto) 0.0 Baso # (Auto) 0.0 Seg Neutrophils % 44.5 Seg Neutrophils # 2.7 Sodium 134 L Potassium 3.6 Chloride 91.8 L Carbon Dioxide 29 Anion Gap 17 BUN 18 H Creatinine 1.0 Estimated GFR > 60 BUN/Creatinine Ratio 18 Glucose 318 H POC Glucose Calcium 9.6 Total Bilirubin 0.80 AST 14 ALT 23 Alkaline Phosphatase 129 Total Protein 7.6 Albumin 4.5 Albumin/Globulin Ratio 1.5 Urine Color Straw Urine Turbidity Clear Urine pH 6.0 Ur Specific [place] 1.027 Urine Protein <15 mg/dl Urine Glucose (UA) >=500 Urine Ketones Neg Urine Blood Neg Urine Nitrite Neg Urine Bilirubin Neg Urine Urobilinogen < 2.0 Ur Leukocyte Esterase Neg Urine WBC (Auto) 4.0 Urine RBC (Auto) 4.0 U Epithel Cells (Auto) 5.0 05/13/21 00:50 WBC RBC Hgb Hct MCV MCH MCHC RDW Plt Count Lymph % (Auto) [place] % (Auto) Eos % (Auto) Baso % (Auto) Lymph # (Auto) [place] # (Auto) Eos # (Auto) Baso # (Auto) Seg Neutrophils % Seg Neutrophils # Sodium Potassium Chloride Carbon Dioxide Anion Gap BUN Creatinine Estimated GFR BUN/Creatinine Ratio Glucose POC Glucose 223 H Calcium Total Bilirubin AST ALT Alkaline Phosphatase Total Protein Albumin Albumin/Globulin Ratio Urine Color Urine Turbidity Urine pH Ur Specific [place] Urine Protein Urine Glucose (UA) Urine Ketones Urine Blood Urine Nitrite Urine Bilirubin Urine Urobilinogen Ur Leukocyte Esterase Urine WBC (Auto) Urine RBC (Auto) U Epithel Cells (Auto) - Medical Decision Making Labs noted for CMP glucose of 338. Patient treated with 1 L of normal saline Accu-Chek now 225. Milligrams a deciliter. Is improved. Plan DC to home. Take all medications as prescribed. Follow-up with Dr. Radha Corrales at [facility] as scheduled in 2 to 3 days. Return to emergency department should symptoms worsen. Patient verbalized agreement and understanding with discharge plan. Patient DC'd home in stable condition at this time Critical care attestation.: If time is entered above; I have spent that time in minutes in the direct care of this critically ill patient, excluding procedure time. ED Disposition Clinical Impression: Hyperglycemia Abdominal pain Qualifiers: Abdominal location: generalized Qualified Code(s): R10.84 - Generalized a bdominal pain Disposition: HOME / SELF CARE / HOMELESS Is pt being admited?: No Does the pt Need Aspirin: No Condition: Stable Instructions: Abdominal Pain (ED), Hyperglycemia, Abdominal Pain, Adult Additional Instructions: Take all medications as prescribed, follow-up with Dr. Radha Corrales in 2 to 3 days as scheduled. Return to emergency department should symptoms worsen. Continue to hydrate as directed. Prescriptions: Sucralfate [Carafate] 1 gm PO ACHS #40 udc Ondansetron [Zofran Odt] 4 mg PO Q8HR PRN #12 tab.rapdis PRN Reason: Nausea And Vomiting Referrals: PRIMARY MEDICAL CARE [Provider Group] - 3-5 Days (Follow up with your [facility] Doctor , Dr. Corrales in 2-3 days , ) Forms: Work/School Release Form(ED) Time of Disposition: 01:07
[2021-05-12 20:59] LABS: Basophils % (Auto) 0.3 % (0.0-1.8); Eosinophils % (Auto) 0.5 % (0.0-4.3); Hematocrit 41.2 % (30.3-42.9); Hemoglobin 14.1 gm/dl (10.1-14.3); Lymphocytes # (Auto) 2.9 K/mm3 (1.2-5.4); Lymphocytes % (Auto) 48.2 % (13.4-35.0); Mean Corpuscular HGB Conc 34 % (30-34); Mean Corpuscular Volume 87 fl (79-97); Monocytes # (Auto) 0.4 K/mm3 (0.0-0.8); Monocytes % (Auto) 6.5 % (0.0-7.3); Platelet Count 184 K/mm3 (140-440); Red Blood Count 4.76 M/mm3 (3.65-5.03); Red Cell Distribution Width 12.1 % (13.2-15.2)
[2021-05-12] MEDS ORDERED: ONDANSETRON 4 MG ODT TAB PO ONE (21:10)
[2021-05-12] MEDS ORDERED: IBUPROFEN 800 MG TAB PO ONE (21:10)
[2021-05-12 21:13] LABS: Bilirubin,Urine NEG (Negative); Blood,Urine NEG (Negative); Color,Urine Straw (Yellow); Protein,Urine <15 mg/dL mg/dL (Negative); Urobilinogen,Urine < 2.0 mg/dL (<2.0)
[2021-05-12 21:17] LABS: Alanine Aminotransferase 23 units/L (7-56); Albumin 4.5 g/dL (3.9-5); BUN/Creatinine Ratio 18; Blood Urea Nitrogen 18 mg/dL (7-17); Calcium 9.6 mg/dL (8.4-10.2); Hemolysis Index 3
[2021-05-12] MEDS ORDERED: KETOROLAC 30 MG/1 ML INJ IV ONE (21:27)
[2021-05-12] MEDS ORDERED: SODIUM CHLORIDE 0.9% 1000 ML 1,000 ML IV ONE (21:27)
[2021-05-12] MEDS ORDERED: ONDANSETRON 4 MG/2 ML INJ IV ONE (21:27)
[2021-05-13] MEDS ORDERED: ALUM-MAG HYDROXIDE-SIMETHICONE 200-200-20MG/5ML ORAL LIQD 30 ML PO ONE (00:56)
[2021-05-13] MEDS ORDERED: LIDOCAINE VISCOUS 2% 15 ML ORAL LIQD PO ONE (00:56)
== END 2021-05-13 01:20 | disposition home or self-care (01) ==
LOC: ED 18:10
DX: R10.84 Generalized abdominal pain (principal); E11.65 Type 2 diabetes mellitus with hyperglycemia; I10 Essential (primary) hypertension
CPT/HCPCS: 36415; 80053; 81001; 82962; 85025; 96361; 96374; 96375; 99283; J1885; J2405; J7030

== ENCOUNTER 2021-06-25 10:19 | Emergency (ER) | payer SELFPAY ==
[2021-06-25] MEDS ORDERED: KETOROLAC 10 MG TAB PO ONE (12:56)
[2021-06-25] MEDS ORDERED: ACETAMINOPHEN 325 MG TAB PO ONE (12:56)
[2021-06-25] MEDS ORDERED: DEXAMETHASONE 4 MG TAB PO ONE (12:56)
--- NOTE | 2021-06-25 12:57 | Emergency Department Report ---
- General Chief Complaint: Upper Respiratory Infection Stated Complaint: covid symtoms Time Seen by Provider: 06/25/21 12:35 Source: patient Mode of arrival: Ambulatory Limitations: No Limitations - History of Present Illness Initial Comments: 45-year-old female with a past medical history of diabetes, chronic pain, hypertension and "mental issues" presents to the ER today with complaints of flulike/Covid-like symptoms. Patient states that she was exposed to somebody at her job was Covid positive. She states that in the past 2 days has been having headache, body aches, cough, intermittently dry intermittently productive, rhinorrhea, sore throat and fever. She states that the highest measured temperature was 101. She has been taking tnat-kjc-beodtab [place] without much relief. She reports no shortness of breath, wheezing, chest pain, GI or symptoms. She has not taken a COVID-19 test since she has been sick. She has not taken any of the COVID-19 vaccines nor the flu vaccines. MD Complaint: fever, cough, sore throat, rhinorrhea -: Gradual - Related Data Previous Rx's Medication Instructions Recorded Last Taken Type Amitriptyline [Elavil] 25 mg PO QHS #14 tab 10/19/18 Unknown Rx Famotidine [Pepcid] 20 mg PO BID #10 tablet 08/11/20 Unknown Rx metFORMIN [Glucophage] 500 mg PO BID 60 Days #60 tablet 08/11/20 Unknown Rx Sucralfate [Carafate] 1 gm PO ACHS #40 udc 05/13/21 Unknown Rx Ibuprofen [Motrin] 600 mg PO Q8H PRN #30 tablet 06/25/21 Unknown Rx Allergies Allergy/AdvReac Type Severity Reaction Status Date / Time cephalexin [From Keflex] Allergy Unknown Verified 06/25/21 11:35 doxycycline Allergy Unknown Verified 06/25/21 11:35 ED Review of Systems ROS: Stated complaint: covid symtoms Other details as noted in HPI Comment: All other systems reviewed and negative Constitutional: chills, fever Eyes: denies: eye pain, eye discharge, vision change ENT: throat pain, other. denies: dental pain, hearing loss, epistaxis Respiratory: cough. denies: shortness of breath, SOB with exertion, SOB at rest, wheezing Cardiovascular: denies: chest pain Gastrointestinal: denies: abdominal pain, nausea, diarrhea, constipation, hematemesis Genitourinary: denies: urgency, dysuria, frequency, hematuria, discharge, abnormal menses, dyspareunia Musculoskeletal: myalgia. denies: back pain, arthralgia Neurological: headache. denies: numbness, paresthesias, confusion, abnormal gait, vertigo Psychiatric: denies: anxiety, depression, auditory hallucinations, visual hallucinations, homicidal thoughts, suicidal thoughts Hematological/Lymphatic: denies: easy bleeding, easy bruising ED Past Medical Hx - Past Medical History Hx Hypertension: Yes Hx Diabetes: Yes Hx Arthritis: Yes Additional medical history: Lupus, shingles - Surgical History Additional Surgical History: hysterectomy,spinal fusion,hand - Social History Smoking Status: Never Smoker Substance Use Type: None - Medications Home Medications: Home Medications Medication Instructions Recorded Confirmed Last Taken Type Amitriptyline [Elavil] 25 mg PO QHS #14 tab 10/19/18 Unknown Rx Famotidine [Pepcid] 20 mg PO BID #10 tablet 08/11/20 Unknown Rx metFORMIN [Glucophage] 500 mg PO BID 60 Days #60 tablet 08/11/20 Unknown Rx Sucralfate [Carafate] 1 gm PO ACHS #40 udc 05/13/21 Unknown Rx Ibuprofen [Motrin] 600 mg PO Q8H PRN #30 tablet 06/25/21 Unknown Rx ED Physical Exam - General Limitations: No Limitations General appearance: alert, in no apparent distress, other (Mild ill-appearing but overall nontoxic) - Head Head exam: Present: atraumatic, normocephalic, normal inspection - Eye Eye exam: Present: normal appearance, PERRL, EOMI Pupils: Present: normal accommodation - ENT ENT exam: Present: normal exam, mucous membranes moist, TM's normal bilaterally - Neck Neck exam: Present: normal inspection, full ROM. Absent: meningismus - Respiratory Respiratory exam: Present: normal lung sounds bilaterally. Absent: respiratory distress, wheezes, rales, rhonchi - Cardiovascular Cardiovascular Exam: Present: regular rate, normal rhythm, normal heart sounds - GI/Abdominal GI/Abdominal exam: Present: soft. Absent: distended, tenderness, guarding, rebound - Neurological Exam Neurological exam: Present: alert, oriented X3, CN II-XII intact, normal gait - Psychiatric Psychiatric exam: Present: normal affect, normal mood - Skin Skin exam: Present: intact ED Course Vital Signs 06/25/21 06/25/21 11:33 14:28 Temperature 99.6 F 98.6 F Pulse Rate 118 H 90 Respiratory 14 16 Rate Blood Pressure 180/96 155/94 [Right] O2 Sat by Pulse 100 98 Oximetry ED Medical Decision Making - Radiology Data Radiology results: report reviewed Patient: ULISES PONCE MR# : [id number] : 1975 Acct:[id number] Age/Sex: 45 / F ADM Date: 06/25/21 Loc: ED Attending Dr: Ordering Physician: MANNY EDMONDS Date of Service: 06/25/21 Procedure(s): XR chest routine 2V Accession Number(s): [id number] cc: MANNY EDMONDS Fluoro Time In Minutes: CHEST 2 VIEWS INDICATION / CLINICAL INFORMATION: Cough and fever. COMPARISON: 03/25/21. FINDINGS: SUPPORT DEVICES: None. HEART / MEDIASTINUM: The heart size and pulmonary vasculature are normal. LUNGS / PLEURA: No significant pulmonary or pleural abnormality. No pneumothorax. ADDITIONAL FINDINGS: There are surgical changes in the lower cervical spine. IMPRESSION: No acute abnormality or significant change. There is no evidence of pneumonia. Signer Name: Mane Chi MD Signed: 06/25/2021 1:39 PM Workstation Name: [id number] Transcribed By: RT Dictated By: Mane Chi MD Electronically Authenticated By: Mane Chi MD Signed Date/Time: 06/25/21 133 DD/ 37 TD/TT: - Medical Decision Making Rapid flu negative. Chest x-ray shows nothing acute. Patient overall is not in any significant pain or respiratory distress. He is neurologically intact with a normal gait. No meningeal signs on exam. Abdomen soft nontender. She is not significantly ill-appearing. She appears well-hydrated and she is not toxic. Do not suspect sepsis at this time. She was mildly tachycardic on arrival, but repeat vital signs shows improvement, she is not hypoxic, she is afebrile and blood pressure stable. Patient symptoms likely viral related, she was exposed to somebody with Covid and so that could likely be the cause of her symptoms. Timothy all results with patient. Encourage patient to get a COVID-19 test at either urgent care or local pharmacy when she leaves here today. In the meantime her symptoms will be getting worse symptoms and encourage lots of fluids. He is to return to the ER if her symptoms worsens in any way. Patient expressed understanding and agree with plan. Patient stable at time of discharge. - Differential Diagnosis Covid, flu, pneumonia, sepsis Critical care attestation.: If time is entered above; I have spent that time in minutes in the direct care of this critically ill patient, excluding procedure time. ED Disposition Clinical Impression: Viral syndrome, Suspected COVID-19 virus infection Disposition: HOME / SELF CARE / HOMELESS Is pt being admited?: No Does the pt Need Aspirin: No Condition: Stable Instructions: COVID-19, COVID-19: How to Protect Yourself and Others - CDC, Viral Illness, Adult Additional Instructions: Rapid flu today was negative. Chest x-ray showed no pneumonia. I am concerned that your symptoms may be related to COVID-19 and I do recommend that she get a test at any local urgent care or pharmacy when she leaves here today. In the meantime I do recommend that you quarantine at home, drink lots of fluids, alternate Tylenol with ibuprofen for any pain or fever, you can take tuel-nqz-snrknwj cough cold medications to help your symptoms, lots of rest, and follow-up with your primary care doctor. If at any point your symptoms worsens in any way return to the ER. Prescriptions: Ibuprofen [Motrin] 600 mg PO Q8H PRN #30 tablet PRN Reason: Pain Referrals: PRIMARY CARE, [Primary Care Provider] - 3-5 Days Forms: Work/School Release Form(ED) Time of Disposition: 14:13
--- NOTE | 2021-06-25 13:43 | XRay Report ---
CHEST 2 VIEWS INDICATION / CLINICAL INFORMATION: Cough and fever. COMPARISON: 03/25/21. FINDINGS: SUPPORT DEVICES: None. HEART / MEDIASTINUM: The heart size and pulmonary vasculature are normal. LUNGS / PLEURA: No significant pulmonary or pleural abnormality. No pneumothorax. ADDITIONAL FINDINGS: There are surgical changes in the lower cervical spine. IMPRESSION: No acute abnormality or significant change. There is no evidence of pneumonia. Signer Name: Mane Chi MD Signed: 06/25/2021 1:39 PM Workstation Name: [id number]
[2021-06-25 14:30] VITALS: BP 155/94
== END 2021-06-25 14:30 | disposition home or self-care (01) ==
LOC: ED 10:19
DX: B34.9 Viral infection, unspecified (principal); Z20.822 Contact with and (suspected) exposure to COVID-19; I10 Essential (primary) hypertension; E11.9 Type 2 diabetes mellitus without complications
CPT/HCPCS: 71046; 87400; 99283; J8540

== ENCOUNTER 2022-01-03 22:35 | Emergency (ER) | payer SELFPAY ==
--- NOTE | 2022-01-04 05:29 | Cat Scan Report ---
CT HEAD WITHOUT CONTRAST INDICATION / CLINICAL INFORMATION: headache. TECHNIQUE: All CT scans at this location are performed using CT dose reduction for ALARA by means of automated exposure control. COMPARISON: 04/08/2020 FINDINGS: BRAIN PARENCHYMA: No acute intracranial hemorrhage. No evidence of recent infarct. No mass effect or midline shift. VENTRICULAR SYSTEM/EXTRA-AXIAL SPACES: Ventricles are normal for age. No extra-axial fluid collection . ORBITS: Normal as visualized. SKELETAL SYSTEM/SOFT TISSUES: Normal bones and soft tissues. PARANASAL SINUSES/MASTOID AIR CELLS: No significant abnormality. ADDITIONAL FINDINGS: None. IMPRESSION: 1. No acute intracranial abnormality. Signer Name: Antoine Jones MD Signed: 01/04/2022 5:25 AM Workstation Name: [id number]
[2022-01-04] MEDS ORDERED: KETOROLAC 60 MG/2 ML INJ IM STA (06:00)
[2022-01-04] MEDS ORDERED: HYDROcodone/ACETAMINOPHEN 5-325 MG TAB PO STA (06:00)
[2022-01-04 06:42] VITALS: BP 146/82
== END 2022-01-04 06:41 | disposition home or self-care (01) ==
LOC: ED 22:35
DX: R51.9 Headache, unspecified (principal); R11.10 Vomiting, unspecified; Z53.21 Procedure and treatment not carried out due to patient leaving prior to being seen by health care provider
CPT/HCPCS: 70450; J1885; 96372; 99283